=== PATIENT | male | born 1965 | race Caucasian/White ===

== ENCOUNTER 2024-04-27 00:23 | Day surgery (SDC) | payer OTHER, SELFPAY ==
[2024-04-17 11:17] VITALS: BMI 32.5
--- NOTE | 2024-04-17 11:27 | PC.NURSE ---
Report to the Outpatient Waiting Room, entrance under the green pavilion located off [facility], at time ___2:00PM____ on date ___04/27/24____. Planned Procedure Time: ___3:00PM .? Time changes happen often and if your time is changed the preop area will call you the afternoon before. - You and your visitor will be asked to self-screen and do not enter if you have any COVID symptoms. Please call surgeon if you need to reschedule. - A mask is optional within the hospital at this time. OKAY TO EAT LIGHT LUNCH. Take only the following medications with a SIP of water on the morning of surgery: MORNING MEDICATION DO NOT STOP ANY OF YOUR OTHER PRESCRIPTION MEDICATIONS PRIOR TO SURGERY EXCEPT THE FOLLOWING Hold all vitamins and supplements for 3 days per anesthesiologist. Medications to discontinue per physician NONE Date to take last dose Please no make-up, nail greenlandic, hairspray, perfume, deodorant, or body powder the day of surgery.? No jewelry (including any body piercings) or valuables the day of surgery, leave them at home.? Please take a shower or bath the night before, or the morning of, surgery with an antibacterial soap.? Wear comfortable, loose fitting clothing.? - Jewelry must be removed prior to entering the operating room.? Rings and piercings that are not removed may be cut off. - The hospital will not accept responsibility for valuables.? - Please leave all valuables, including medications, at home the day of surgery. If you are going home after surgery, a licensed trash collector truck driver must drive you home.? - NO public transportation without another adult if you receive anesthesia. - We recommend that an adult stay with you for 24 hours following discharge. - We also recommend that you do not drive, make important decision, drink alcoholic beverages, or take any drugs that were not prescribed by your health care provider for at least 24 hours after your discharge time. Follow any additional instructions given to you from your surgeon. Telephone instructions given to PATIENT and asked if any additional questions and then verbalized understanding. Patient advised to call surgeon office or pre surgery nurse liaison [phone] if any additional questions.
--- OUTSIDE RECORDS SUMMARY | 2024-04-27 00:25 | XMS_ITS | Clinical Summary ---
Author Organization [facility] Address [address] [place] [phone] Phone Care Team Providers Care Hotel And Dining Room Cashier Name Role Phone Byron Calderon MD Primary Care Provider Allergies Active Allergy Reactions Criticality Noted Date Comments Aspirin Unknown 02/21/2017 Medications celecoxib (CeleBREX) 200 mg capsule Take 200 mg by mouth daily. Active amLODIPine (NORVASC) 2.5 mg tablet Take 5 mg by mouth daily. Active omeprazole (PriLOSEC) 20 mg Capsule, Delayed Release(E.C.) Take 20 mg by mouth daily. Active Active Problems No known active problems Family History Medical History Relation Name Comments Cancer Father Lymphoma Father Coronary Artery Disease Mother Heart Attack Mother Relation Name Status Comments Father Mother Social History Tobacco Use Types Packs/Day Years Used Date Smoking Tobacco: Never Tobacco Cessation:Counseling Given: Not Answered Alcohol Use Standard Drinks/Week Comments Not Currently 0 (1 standard drink = 0.6 oz pur e alcohol) Sex and Gender Information Value Date Recorded Sex Assigned at Not on file Legal Sex Male 10:33 AM CDT Gender Identity Not on file Sexual Orientation Not on file Last Filed Vital Signs Vital Sign Reading Time Taken Comments Blood Pressure 126/74 09/17/2022 3:03 PM CDT Pulse 56 09/17/2022 3:03 PM CDT Temperature 36.7 C (98.1 F) 04/07/2020 10:13 AM CLIENT REPORTING ASSOCIATE Respiratory Rate 18 04/07/2020 10:13 AM CLIENT REPORTING ASSOCIATE Oxygen Saturation 100% 04/07/2020 10:13 AM CLIENT REPORTING ASSOCIATE Inhaled Oxygen Concentration - - Weight 120.2 kg (265 lb) 09/17/2022 3:03 PM CDT Height 190.5 cm (6' 3 ) 09/17/2022 3:03 PM CDT Body Mass Index 33.12 09/17/2022 3:03 PM CDT Plan of Treatment Health Maintenance Due Date Last Done Comments HEPATITIS B VACCINES (1 of 3 - 19+ 3-dose series) 02/19/1984 COLORECTAL SCREENING 2010 Colorectal Cancer Screening 2010 FIT-DNA Q 3 years 2010 FIT/FOBT Q 1 year 2010 Flex Sig/CT Colonography Q 5 years 2010 ZOSTER VACCINE (1 of 2) 2015 INFLUENZA VACCINE (#1) 2023 8, 12/15/2015, 10/07/2014, Additional history exists DTAP/TDAP/TD VACCINES (2 - T d or Tdap) 08/10/2024 08/10/2014 [place] [address] Care Teams Hotel And Dining Room Cashier Relationship Specialty Start Date End Date Byron Calderon MD PCP - General 09/08/17
--- OUTSIDE RECORDS SUMMARY | 2024-04-27 00:25 | XMS_ITS | Clinical Summary ---
Author Organization [facility] [employer] Address [address] [place] [address] Care Team Providers Care Belt Polisher Name Role Phone Byron Calderon MD Primary Care Provider [phone] Source Comments [facility] [employer],non-owned Affiliates and Associated Physician Practices is amultiple site organization consisting of ambulatory clinics and hospital sitesin [place], [place], [place] and [place]. This disclosure is being madepursuant to the Care Everywhere program and may not contain all information available regarding this patient. Last updated 17.[facility] [employer] Allergies Active Allergy Reactions Criticality Noted Date Comments Aspirin Unknown 02/21/2017 Medications * Be aware that medications may not be up to date on this document. Alwaysverify current medications with the patient. Medication Sig Dispensed Refills Start Date End Date Status CELEBREX 200 MG capsule 09/16/2018 Active amLODIPine (NORVASC) 2.5 MG tablet 09/03/2018 Active omeprazole (PRILOSEC) 20 MG capsule 07/19/2018 Active meloxicam (Mobic) 15 MG tablet Take 1 (one) tablet by mouth once daily 30 tablet 03/09/2024 Active Hospital, Clinic, or Other Facility Administered Medication Ordered Dose Route Frequency Start Date End Date Status ROPivacaine (Naropin) 2 MG/ML (0.2%) injection 4 mLIndications:Left shoulder pain, unspecified chronicity 4 mL INFILTRATION ONCE 04/20/2024 04/20/2024 Ended triamcinolone acetonide (Kenalog-40) injection 80 mgIndications:Left shoulder pain, unspecified chronicity 80 mg IX ONCE 04/20/2024 04/20/2024 Ended ROPivacaine (Naropin) 2 MG/ML (0.2%) injection 4 mLIndications:Chroni c right shoulder pain 4 mL INFILTRATION ONCE 04/20/2024 04/20/2024 Ended triamcinolone acetonide (Kenalog-40) injection 80 mgIndications:Chroni c right shoulder pain 80 mg IX ONCE 04/20/2024 04/20/2024 Ended Active Problems Problem Noted Date Diagnosed Date 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 Encounters Date Type Department Care Team Description 04/20/2024 8:13 AM CDT - 04/20/2024 11:59 PM CDT Hospital Encounter [facility] - [facility]iology [address] [id number] Edin Cho MD Discharge Disposition: Home or Self Care 04/20/2024 8:10 AM CDT Office Visit [facility] - Orthopedic Surgery [address] [place] [phone] Edin Cho MD Left shoulder pain, unspecified chronicity (Primary Dx); Chronic right shoulder pain 04/20/2024 Travel 04/15/2024 Travel 03/09/2024 8:10 AM SHIP CLEANER Office Visit [facility] - Orthopedic Surgery [address] [place] [phone] Edin Cho MD Right shoulder pain, unspecified chronicity (Primary Dx) 03/09/2024 7:47 AM SHIP CLEANER - 03/09/2024 11:59 PM SHIP CLEANER Hospital Encounter [facility] [address] [id number] Edin Cho MD Discharge Disposition: Home or Self Care 03/09/2024 Travel 03/05/2024 Orders Only [facility] - Orthopedic Surgery [address] [place] [phone] Edin Cho MD Right shoulder pain, unspecified chronicity 03/05/2024 Travel from Last 3 Months Family History Medical History Relation Name Comments Lymphoma Father CAD (Coronary Artery Disease) Mother Relation Name Status Comments Father Mother Social History Tobacco Use Types Packs/Day Years Used Date Smoking Tobacco: Never Smokeless Tobacco: Never Tobacco Cessation:Counseling Given: Not Answered Alcohol Use Standard Drinks/Week Comments Yes 0 (1 standard drink = 0.6 oz pur e alcohol) PHQ-2 Answer Date Recorded Patient Health Questionnaire-2 Score 0 03/09/2024 Sex and Gender Information Value Date Recorded Sex Assigned at Not on file Gender Identity Not on file Sexual Orientation Not on file Last Filed Vital Signs Vital Sign Reading Time Taken Comments Blood Pressure 140/98 10/31/2018 9:50 AM CDT Pulse 60 10/31/2018 9:50 AM CDT Temperature - - Respiratory Rate 16 10/31/2018 9:50 AM CDT Oxygen Saturation - - Inhaled Oxygen Concentration - - Weight 117 kg (258 lb) 04/20/2024 8:09 AM CDT Height 190.5 cm (6' 3 ) 04/20/2024 8:09 AM CDT Body Mass Index 32.25 04/20/2024 8:09 AM CDT Plan of Treatment Health Maintenance Due Date Last Done Comments COLOGUARD (AGES 45-75) - COL ON CA SCREENING 1965 COLON MONITORING 1965 COLONOSCOPY - COLON CA SCREENING 1965 CT COLONOGRAPHY - COLON CA SCREENING 1965 Colorectal Cancer Screening 1965 FIT - COLON CA SCREENING 1965 FLEX SIG - COLON CA SCREENING 1965 LIPID TESTING 1965 HIV SCREENING 02/19/1980 HEPATITIS C SCREENING 02/14/1983 DTAP/TDAP/TD VACCINES (1 - Tdap) 02/19/1984 HEPATITIS B VACCINE (1 of 3 - 19+ 3-dose series) 02/19/1984 PNEUMOCOCCAL VACCINE 50+ (1 of 1 - PCV) 2015 ZOSTER VACCINE (1 of 2) 2015 COVID-19 VACCINE ( - 2023-2 5 season) 2023 INFLUENZA VACCINE (#1) 2023 SCREENING FOR DIABETES 03/09/2024 DEPRESSION SCREENING Completed 03/09/2024 HIB VACCINE Aged Out No longer eligi ble based on patient's age to complete this topic HPV VACCINE Aged Out No longer eligi ble based on patient's age to complete this topic MENINGOCOCCAL (Group B) VACC INE SHARED DECISION-MAKING Aged Out No longer eligibl e based on patient's age to complete this topic MENINGOCOCCAL GROUPS A/C/Y/W VACCINE Aged Out No longer eligible b ased on patient's age to complete this topic Procedures Procedure Name Priority Date/Time Associated Diagnosis Comments PA DRAIN/INJECT LARGE JOINT/BURSA Routine 04/20/2024 8:42 AM CDT Left shoulder pain, unspecified chronicity PA DRAIN/INJECT LARGE JOINT/BURSA Routine 04/20/2024 8:41 AM CDT Chronic right shoulder pain XR SHOULDER LEFT 2VW OR MORE Routine 04/20/2024 8:16 AM CDT Left shoulder pain, unspecified chronicity XR SHOULDER RIGHT 2VW OR MORE Routine 03/09/2024 7:51 AM SHIP CLEANER Right shoulder pain, unspecified chronicity from Last 3 Months Results * PA DRAIN/INJECT LARGE JOINT/BURSA (04/20/2024 8:42 AM CDT) Edin Drummond MD - 04/20/2024 8:42 AM CDT Edin Cho MD 04/20/2024 8:56 AM INJECTION PROCEDURE NOTE: The details of the procedure were discussed with the patient including risks and benefits. The patient had a chance to ask questions and gave consent to proceeding. The injection site was marked. A timeout was performed. Under sterile conditions, without complications, tolerated well by the patient, 5 cc ropivacaine and 80 mg (2 cc) triamcinolone were injected into the right subacromial space posteriorly. There was no blood loss. Edin Cho MD Edin Cho MD PROCEDURE/MINOR SURG ICAL ORDERABLES * PA DRAIN/INJECT LARGE JOINT/BURSA (04/20/2024 8:41 AM CDT) Edin Drummond MD - 04/20/2024 8:41 AM CDT Edin Cho MD 04/20/2024 8:56 AM INJECTION PROCEDURE NOTE: The details of the procedure were discussed with the patient including risks and benefits. The patient had a chance to ask questions and gave consent to proceeding. The injection site was marked. A timeout was performed. Under sterile conditions, without complications, tolerated well by the patient, 5 cc ropivacaine and 80 mg (2 cc) triamcinolone were injected into the left subacromial space posteriorly. There was no blood loss. Edin Cho MD Edin Cho MD PROCEDURE/MINOR SURG ICAL ORDERABLES * XR Shoulder Left 2Vw or More (04/20/2024 8:16 AM CDT) Anatomical Region Laterality Modality Upper Extremity Computed Radiogr aphy 04/20/2024 10:5 8 AM CDT Narrative 04/20/2024 10:58 AM CDT 3 views left shoulder Indication: Left shoulder pain Findings: There is no displaced fracture or dislocation osseous destruction. Significant hypertrophic or erosive changes are not identified. > Interpreting Provider: Cheng Mac JR, MD on 04/20/2024 10:58 AM Procedure Note Cheng Mac MD - 04/20/2024 3 views left shoulder Indication: Left shoulder pain Findings: There is no displaced fracture or dislocation osseous destruction. Significant hypertrophic or erosive changes are not identified. > Interpreting Provider: Cheng Mac JR, MD on 04/20/2024 10:58 AM Edin Cho MD DIAGNOSTIC IMAGING O RDERABLES * XR Shoulder Right 2Vw or More (03/09/2024 7:51 AM SHIP CLEANER) Anatomical Region Laterality Modality Upper Extremity Computed Radiogr aphy 03/09/2024 10:3 2 AM SHIP CLEANER Impressions 03/09/2024 11:04 AM SHIP CLEANER IMPRESSION: No acute osseous abnormality. Edited by Maddison Manriquez on 03/09/2024 10:50 AM > Interpreting Provider: Bautista Machado MD on 03/09/2024 11:04 AM Narrative 03/09/2024 11:04 AM SHIP CLEANER PROCEDURE: XR SHOULDER RIGHT 2VW OR MORE DATE/TIME OF EXAM: 03/09/2024 7:51 AM CLINICAL INFORMATION: None relevant/not provided if blank. Indication: M25.511: Pain in right shoulder Additional History: COMPARISON: None. FINDINGS: Three views of the right shoulder show no acute fracture, subluxation or dislocation. Procedure Note Bautista Machado MD - 03/09/2024 PROCEDURE: XR SHOULDER RIGHT 2VW OR MORE DATE/TIME OF EXAM: 03/09/2024 7:51 AM CLINICAL INFORMATION: None relevant/not provided if blank. Indication: M25.511: Pain in right shoulder Additional History: COMPARISON: None. FINDINGS: Three views of the right shoulder show no acute fracture, subluxation or dislocation. IMPRESSION: No acute osseous abnormality. Edited by Maddison Manriquez on 03/09/2024 10:50 AM > Interpreting Provider: Bautista Machado MD on 03/09/2024 11:04 AM Edin Cho MD DIAGNOSTIC IMAGING O RDERABLES from Last 3 Months Care Teams Belt Polisher Relationship Specialty Start Date End Date Byron Calderon MD PCP - General 10/01/18
--- OUTSIDE RECORDS SUMMARY | 2024-04-27 00:25 | XMS_ITS | Referral Summary ---
Author Organization [facility] [employer] Address [address] [place] [address] Care Team Providers Care Elementary Spanish Teacher Name Role Phone Byron Calderon MD Primary Care Provider [phone] Source Comments [facility],non-owned Affiliates and Associated Physician Practices is amultiple site organization consisting of ambulatory clinics and hospital sitesin [place], [place], [place] and [place]. This disclosure is being madepursuant to the Care Everywhere program and may not contain all information available regarding this patient. Last updated 17.[facility] Encounters Date Type Department Care Team Description 04/20/2024 8:13 AM CDT - 04/20/2024 11:59 PM CDT Hospital Encounter [facility] - Radiology [address] [id number] Edin Cho MD Discharge Disposition: Home or Self Care 04/20/2024 Travel 04/20/2024 8:10 AM CDT Office Visit [facility] - Orthopedic Surgery [address] [place] [address] [place] [id number] Edin Cho MD Left shoulder pain, unspecified chronicity (Primary Dx); Chronic right shoulder pain 04/15/2024 Travel 03/09/2024 7:47 AM HOUSE FURNISHINGS SUPERVISOR - 03/09/2024 11:59 PM HOUSE FURNISHINGS SUPERVISOR Hospital Encounter [facility] - Radiology [address] [id number] Edin Cho MD Discharge Disposition: Home or Self Care 03/09/2024 Travel 03/09/2024 8:10 AM HOUSE FURNISHINGS SUPERVISOR Office Visit [facility] - Orthopedic Surgery [address] [place] [phone] Edin Cho MD Right shoulder pain, unspecified chronicity (Primary Dx) 03/05/2024 Orders Only [facility] - Orthopedic Surgery [address] [place] [id number] Edin Cho MD Right shoulder pain, unspecified chronicity 03/05/2024 Travel from Last 3 Months Allergies Active Allergy Reactions Criticality Noted Date [...] Date 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 Social History Tobacco Use Types Packs/Day Years [...] 04/20/2024 8:09 AM CDT Plan of Treatment Not on file Procedures Procedure Name Priority Date/Time Associated Diagnosis Comments NE DRAIN/INJECT LARGE JOINT/BURSA Routine 04/20/2024 8:42 AM CDT Left shoulder pain, unspecified chronicity NE DRAIN/INJECT LARGE JOINT/BURSA Routine 04/20/2024 8:41 AM CDT Chronic right shoulder pain XR SHOULDER LEFT 2VW OR MORE Routine 04/20/2024 8:16 AM CDT Left shoulder pain, unspecified chronicity XR SHOULDER RIGHT 2VW OR MORE Routine 03/09/2024 7:51 AM HOUSE FURNISHINGS SUPERVISOR Right shoulder pain, unspecified chronicity from Last 3 Months Results * NE DRAIN/INJECT LARGE JOINT/BURSA (04/20/2024 8:42 AM CDT) Narrative Edin Cho MD - 04/20/2024 8:42 AM CDT Edin [...] Cho MD PROCEDURE/MINOR SURG ICAL ORDERABLES * NE DRAIN/INJECT LARGE JOINT/BURSA (04/20/2024 8:41 AM CDT) Narrative Edin Cho MD - 04/20/2024 8:41 AM CDT Edin [...] Right 2Vw or More (03/09/2024 7:51 AM HOUSE FURNISHINGS SUPERVISOR) Anatomical Region Laterality Modality Upper Extremity Computed Radiogr aphy 03/09/2024 10:3 2 AM HOUSE FURNISHINGS SUPERVISOR Impressions 03/09/2024 11:04 AM HOUSE FURNISHINGS SUPERVISOR IMPRESSION: No acute osseous abnormality. Edited by Maddison Manriquez on 03/09/2024 10:50 AM > Interpreting Provider: Bautista Machado MD on 03/09/2024 11:04 AM Narrative 03/09/2024 11:04 AM HOUSE FURNISHINGS SUPERVISOR PROCEDURE: XR SHOULDER RIGHT 2VW OR MORE [...] RDERABLES from Last 3 Months Care Teams Elementary Spanish Teacher Relationship Specialty Start Date End Date Byron Calderon MD PCP - General 10/01/18
--- OUTSIDE RECORDS SUMMARY | 2024-04-27 00:25 | XMS_ITS | Patient Health Summary ---
Author Organization [facility] Address [address] [place] [address] Care Team Providers Care Sales Enablement Lead Name Role Phone Byron Calderon MD Primary Care Provider [phone] [facility],non-owned Affiliates and Associated Physician Practices is amultiple site organization consisting of ambulatory clinics and hospital sitesin [place], [place] and [place]. This disclosure is being madepursuant to the Care Everywhere program and may not contain all information available regarding this patient. Last updated 17.[facility] Allergies * Aspirin(Unknown) Medications * Be aware that medications may not be up to date on this document. Alwaysverify current medications with the patient. * CELEBREX 200 MG capsule(Started 09/16/2018) * amLODIPine (NORVASC) 2.5 MG tablet(Started 09/03/2018) * omeprazole (PRILOSEC) 20 MG capsule(Started 07/19/2018) * meloxicam (Mobic) 15 MG tablet(Started 03/09/2024) Take 1 (one) tablet by mouth once daily Active Problems Problem Noted Date Diagnosed Date [...] Mass Index 32.25 04/20/2024 8:09 AM CDT Procedures * AL DRAIN/INJECT LARGE JOINT/BURSA(Performed 04/20/2024) Performed for Left shoulder pain, unspecified chronicity * AL DRAIN/INJECT LARGE JOINT/BURSA(Performed 04/20/2024) Performed for Chronic right shoulder pain * XR SHOULDER LEFT 2VW OR MORE(Performed 04/20/2024) Performed for Left shoulder pain, unspecified chronicity * XR SHOULDER RIGHT 2VW OR MORE(Performed 03/09/2024) Performed for Right shoulder pain, unspecified chronicity * CT ANKLE LEFT WO CONTRAST(Performed 10/08/2018) Performed for Arthritis of left subtalar joint * XR ANKLE LEFT 3VW OR MORE(Performed 10/01/2018) Performed for Pain Results * AL DRAIN/INJECT LARGE JOINT/BURSA (04/20/2024 8:42 AM CDT) [...] Cho MD PROCEDURE/MINOR SURG ICAL ORDERABLES * AL DRAIN/INJECT LARGE JOINT/BURSA (04/20/2024 8:41 AM CDT) [...] Right 2Vw or More (03/09/2024 7:51 AM IRISH MOSS OPERATOR) Anatomical Region Laterality Modality Upper Extremity Computed Radiogr aphy 03/09/2024 10:3 2 AM IRISH MOSS OPERATOR Impressions 03/09/2024 11:04 AM IRISH MOSS OPERATOR IMPRESSION: No acute osseous abnormality. Edited by Maddison Manriquez on 03/09/2024 10:50 AM > Interpreting Provider: Bautista Machado MD on 03/09/2024 11:04 AM Narrative 03/09/2024 11:04 AM IRISH MOSS OPERATOR PROCEDURE: XR SHOULDER RIGHT 2VW OR MORE [...] Cho MD DIAGNOSTIC IMAGING O RDERABLES * CT ANKLE LEFT WO CONTRAST (10/08/2018 7:48 AM CDT) Anatomical Region Laterality Modality Lower Extremity Computed Tomogra phy 10/08/2018 8:15 AM CDT Narrative 10/08/2018 8:[address] HISTORY: Degenerative changes and ankle pain. TECHNIQUE: Axial images of the ankle, midfoot and hindfoot were obtained without contrast. There are degenerative changes of the distal tibiofibular articulation and tibiotalar articulation. Visualized talar dome is normal without evidence of talar dome defects. There is marked degenerative change in the posterior subtalar joint with significant joint space narrowing and subchondral cyst formation. Associated hypertrophic bone formation is seen. More mild to moderate degenerative change of the sustentaculum talus, talonavicular articulation, mid foot joint spaces and tarsometatarsal articulations. Small anterior inferior calcaneal spur and enthesophyte at the insertion of the Achilles tendon. Ankle joint effusion is present. DIAGNOSIS: Diffuse degenerative changes. Findings are most notable in the posterior subtalar joint. Edited by Cyndy Vidales on 10/08/2018 8:54 AM Reading Radiologist: Sanford Hammond MD on 10/08/2018 at 8:57 AM Procedure Note Sanford Hammond MD - 10/08/[address] HISTORY: Degenerative changes and ankle pain. TECHNIQUE: Axial images of the ankle, midfoot and hindfoot were obtained without contrast. There are degenerative changes of the distal tibiofibular articulation and tibiotalar articulation. Visualized talar dome is normal without evidence of talar dome defects. There is marked degenerative change in the posterior subtalar joint with significant joint space narrowing and subchondral cyst formation. Associated hypertrophic bone formation is seen. More mild to moderate degenerative change of the sustentaculum talus, talonavicular articulation, mid foot joint spaces and tarsometatarsal articulations. Small anterior inferior calcaneal spur and enthesophyte at the insertion of the Achilles tendon. Ankle joint effusion is present. DIAGNOSIS: Diffuse degenerative changes. Findings are most notable in the posterior subtalar joint. Edited by Cyndy Vidales on 10/08/2018 8:54 AM Reading Radiologist: Sanford Hammond MD on 10/08/2018 at 8:[address] ORDERABLES * XR ANKLE LEFT 3VW OR MORE (10/01/2018 3:07 PM CDT) Anatomical Region Laterality Modality Lower Extremity Radiographic Lakisha ging 10/01/2018 3:08 PM CDT Narrative 10/01/2018 3:09 PM CDT Left ankle HISTORY: Pain. PROCEDURE: AP, lateral and oblique views left ankle are admitted without prior for comparison. Findings/impression: Mild degenerative changes are noted at the tibiotalar joint. Degenerative changes are seen at the talonavicular and tarsal joints. There appears to be mild pes planus. A small calcaneal spur and Achilles enthesophyte are noted. Ankle mortise is grossly intact. Reading Radiologist: Bautista Piña MD on 10/01/2018 at 3:09 PM Procedure Note Bautista Piña DO - 10/01/2018 Left ankle HISTORY: Pain. PROCEDURE: AP, lateral and oblique views left ankle are admitted without prior for comparison. Findings/impression: Mild degenerative changes are noted at the tibiotalar joint. Degenerative changes are seen at the talonavicular and tarsal joints. There appears to be mild pes planus. A small calcaneal spur and Achilles enthesophyte are noted. Ankle mortise is grossly intact. Reading Radiologist: Bautista Piña MD on 10/01/2018 at 3:09 PM Felix Lopez DO DIAGNOSTIC IMAGING O [facility] Care Teams Sales Enablement Lead Relationship Specialty Start Date End Date Byron Calderon MD PCP - General 10/01/18
[2024-04-27 13:55] VITALS: BP 148/85; PULSE 79; RESP 14; TEMP 36.8; O2SAT 96
--- NOTE | 2024-04-27 14:24 | WPDHPUPDATE1 ---
History and Physical Update Update Date/Time: 04/27/24 14:24 History and Physical has been reviewed, including an updated exam of the patient. There are NO changes in the patient's condition. Risks, benefits, and alternatives have been discussed and questions answered. Patient agrees to proceed with procedure.
[2024-04-27 14:40] VITALS: BP 158/86; PULSE 67; RESP 16; O2SAT 96
[2024-04-27 14:50] VITALS: BP 151/81; PULSE 64; RESP 16; O2SAT 94
[2024-04-27] MEDS: BUPivacaine HCL 0.5% 10 ML AMP 20 ML INFILTRATE (14:51)
[2024-04-27] MEDS: LIDO 1%/EPINEPHRINE 1:100,000 20 ML VIAL INFILTRATE (14:51)
[2024-04-27 15:00] VITALS: BP 144/70; PULSE 72; RESP 16; O2SAT 94
[2024-04-27 15:10] VITALS: BP 136/58; PULSE 77; RESP 16; O2SAT 93
[2024-04-27 15:20] VITALS: BP 142/80; PULSE 70; RESP 18; O2SAT 100
--- NOTE | 2024-04-27 15:29 | W.PM.PROC2 ---
Procedure Note - Detailed Date of Procedure 04/27/24 Pre-op Diagnosis Left upper back sebaceous cyst Post-op Diagnosis Same Procedure Performed Excision left upper back sebaceous cyst with 5cm intermediate layered wound closure Surgeon Edin Ott MD Anesthesia Local Indications Patient is a 59-year-old gentleman who presented with a small slowly enlarging cyst in left upper back region. On examination appeared to be a sebaceous cyst. There has been no history of infection of the cyst but is enlarging. He would like to go ahead and have it excised today. Findings The patient is a 3x2x1.5cm sebaceous cyst which was nonruptured in the left upper back region. Required a 5cm intermediate layered wound closure after excision. Description of Procedure After informed consent was obtained patient brought to the operating was placed on the prone position on the operating table. The area the upper back region on the left side was then prepped and draped in usual sterile fashion. A time-out was then performed correctly identifying the patient as well as procedure to be performed. Site marking was verified. No antibiotics were given perioperatively. 1% lidocaine mixed with 0.5% Marcaine was then injected around the cyst for local anesthetic effect. A transverse incision was made full thickness down through the dermis the skin in elliptical fashion. Dissection was then carried further down to the subcutaneous tissues with a combination sharp scalpel electrocautery dissection. The whole wall the cyst was excised out with this incision with the attached ellipse of skin without violating the wall of the cyst. The cyst measured 3x2x1.5cm. It was sent to pathology for examination. Hemostasis and the incision was then achieved electrocautery. The wound was then irrigated sterile saline solution hemostasis was good. A 5cm intermediate layered wound closure was then performed. Interrupted 2-0 Vicryl sutures were placed in the deeper portions of the subcutaneous tissues. This is then followed by more superficial layer of interrupted 3-0 Vicryl sutures. The skin edges were then approximated lies in a running subcuticular 4-0 Monocryl suture. The incision was then cleaned the skin glue was applied. The patient tolerated the procedure well no complications. All sponges, needles, and instrument counts were correct at the end procedure. EBL was _10__cc. The patient was awakened and taken to recovery in stable and satisfactory condition. Implants None Estimated Blood Loss 10 Drains No Packing No Pathology Yes (Left upper back sebaceous cyst sent to pathology) Complications No immediate complications Condition Stable Disposition Same day [facility] Billing Surgery - Charge Forward: Surgery Billing
== END 2024-04-27 15:38 | disposition home or self-care (01) ==
PROVIDERS: Visit Provider Surgery
PROC: (CPT 11406; principal; 2024-04-27 13:30)
DX: L72.0 Epidermal cyst (principal); I10 Essential (primary) hypertension; M19.90 Unspecified osteoarthritis, unspecified site; Z79.1 Long term (current) use of non-steroidal anti-inflammatories (NSAID); Z98.890 Other specified postprocedural states; Z80.7 Family history of other malignant neoplasms of lymphoid, hematopoietic and related tissues
CPT/HCPCS: 11406; 12032; 88305; J2004

== ENCOUNTER 2025-01-07 11:29 | Inpatient (IN) | payer OTHER, SELFPAY ==
[2025-01-07] VITALS (28 sets, daily range): BP systolic 146–185; BP diastolic 85–104; PULSE 63–89; RESP 12–23; TEMP 36.6; O2SAT 98–100; BMI 31.1
--- NOTE | ~2025-01-07 | CT_ITS ---
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 TECHNIQUE: CTA scan with 3D Reconstructions of the chest, abdomen and pelvis was performed with contrast Isovue 300, 92cc injected IV. One or more of the following dose reduction techniques were used: automated exposure control, adjustment of the mA and/or kV according to patient size, use of iterative reconstruction technique. Unless otherwise stated, incidental findings do not require dedicated follow up imaging FINDINGS: CT chest: No significant coronary calcification is present ([id number]) LUNGS: Clear without consolidation, effusion, or pneumothorax. HEART AND PERICARDIUM: Within normal limits. AORTA: Normal caliber aorta. No aneurysm or dissection identified MEDIASTINUM: Unremarkable. THYROID: The thyroid is unremarkable. CT abdomen: LIVER: Unremarkable, liver contours intact, no lesions. SPLEEN: Unremarkable, no splenomegaly. KIDNEYS: Right Kidney: Right kidney subcentimeter probable renal cysts but too small to characterize. Left Kidney: Unremarkable. No calculi. No hydronephrosis ADRENAL GLANDS: Unremarkable. PANCREAS: GALLBLADDER/BILIARY: Unremarkable. No biliary dilatation. STOMACH AND ESOPHAGUS: Visualized stomach and esophagus within normal limits. BOWEL/MESENTERY: Moderate fecal content. No colitis or diverticulitis. Appendix normal. Mesentery normal. No thickened or dilated loops of small bowel. RETROPERITONEUM: Unremarkable AORTA/VASCULATURE: . No aneurysm or dissection identified. The visualized aortic tributaries appear unremarkable FREE FLUID OR FREE AIR: Free fluid.. CT pelvis: SOLID ORGANS/REPRODUCTIVE: Unremarkable. BLADDER: Within normal limits. LYMPHADENOPATHY: No lymphadenopathy. OSSEOUS STRUCTURES: No sclerotic or lytic lesions. No fractures identified in the pelvis. Moderate degenerative changes of the lumbar spine. OVERLYING SOFT TISSUES: Small bilateral fat-containing inguinal hernia.Small bilateral partially imaged hydroceles, scrotal ultrasound suggested IMPRESSION: 1. No acute process is identified. No dissection or aneurysm Reviewed, dictated and finalized at location P. DENTIAL GREEN BUILDING DESIGNER
--- NOTE | ~2025-01-07 | XR_ITS ---
EXAM/PROCEDURE: XR chest 2V HISTORY: Chest pain COMPARISON: None available. TECHNIQUE: Two view(s) of the chest. FINDINGS: LUNGS: The frontal view is obtained in expiration, causing crowding of the lung markings. Strandy densities are seen at both lung bases. This is probably secondary to the expiratory status, as there is no airspace disease seen on the lateral. PLEURAL SPACES: Clear. No evidence of fluid or pneumothorax. HEART/ MEDIASTINUM: The heart size appears to be enlarged, at least in part related to the AP technique on the frontal view SOFT TISSUES: No significant findings. BONES: No acute osseous abnormality. IMPRESSION: Probable strandy atelectasis on the frontal view. No definite infiltrate or air space disease seen on the lateral. Clinically correlate. Reviewed, dictated and finalized at location A. STERED PHARMACIST
--- NOTE | 2025-01-07 11:30 | ECG_ITS ---
Test Date: 2025-01-07 11:37:47 Measurements Intervals [place] Rate: 81 P: 23 AR: 184 QRS: -15 QRSD: 129 T: 24 QT: 386 QTc: 450 Interpretive Statements SINUS RHYTHM POSSIBLE RIGHT VENTRICULAR CONDUCTION DELAY [RSR (QR) IN V1/V2] ABNORMAL ECG No previous ECG available for comparison Electronically Signed On 01-07-2025 12:31:19 EMPLOYMENT LAW SPECIALIST by Bautista Conley M.D.
--- OUTSIDE RECORDS SUMMARY | 2025-01-07 11:31 | XMS_ITS | Clinical Summary ---
Author Organization [facility] Address [address] [place] [phone] Phone Care Team Providers Care Informatica Name Role Phone Byron Calderon MD Primary [...] 36.7 C (98.1 F) 04/07/2020 10:13 AM CHIEF ENGINEER RESEARCH Respiratory Rate 18 04/07/2020 10:13 AM CHIEF ENGINEER RESEARCH Oxygen Saturation 100% 04/07/2020 10:13 AM CHIEF ENGINEER RESEARCH Inhaled Oxygen Concentration - - Weight 120.2 kg (265 lb) 09/17/2022 3:03 PM CDT Height 190.5 cm (6' 3) 09/17/2022 3:03 PM CDT Body Mass Index 33.12 09/17/2022 3:03 PM CDT Plan of Treatment Health Maintenance Due Date Last Done Comments HEPATITIS B VACCINES (1 of 3 - 19+ 3-dose series) 02/19/1984 COLORECTAL SCREENING 2010 Colorectal Cancer Screening 2010 FIT-DNA Q 3 years 2010 FIT/FOBT Q 1 year 2010 Flex Sig/CT Colonography Q 5 years 2010 ZOSTER VACCINE (1 of 2) 2015 DTAP/TDAP/TD VACCINES (2 - T d or Tdap) 08/10/2024 08/10/2014 INFLUENZA VACCINE (#1) 2024 8, 12/15/2015, 10/07/2014, Additional history exists Insurance [facility] [employer] PPO [id number] Care Teams Informatica Relationship Specialty Start Date End Date Byron Calderon MD PCP - General 09/08/17
--- OUTSIDE RECORDS SUMMARY | 2025-01-07 11:31 | XMS_ITS | Clinical Summary ---
Author Organization [facility] Address [address] [place] [address] Care Team Providers Care Senior Research Consultant Name Role Phone Byron Calderon MD Primary Care Provider [phone] Source Comments [facility],non-owned Affiliates and Associated Physician Practices is amultiple site organization consisting of ambulatory clinics and hospital sitesin [place], [place], [place] and [place]. This disclosure is being madepursuant to the Care Everywhere program and may not contain all information available regarding this patient. Last updated 17.[facility] Allergies Active Allergy Reactions Criticality Noted Date Comments Aspirin Unknown 02/21/2017 Medications * Be aware that medications may not be up to date on this document. Alwaysverify current medications with the patient. CELEBREX 200 MG capsule 9 Active omeprazole (PRILOSEC) 20 MG capsule 9 Active meloxicam (Mobic) 15 MG tablet Take 1 (one) tablet by mouth once daily 30 tablet 5 Active Additional Information Patient not taking.Reported on 12/21/2024 ciclopirox (Loprox) 0.77 % suspension APPLY TOPICALLY TO THE AFFECTED AREA OF NAILS ONCE DAILY IN THE EVENING BEFORE BEDTIME Active amLODIPine (Norvasc) 5 MG tablet 5 Active amLODIPine (NORVASC) 2.5 MG tablet 9 12/22/19 25 Discontin ued(List Clean-Up) Hospital, Clinic, or Other Facility Administered Medication Ordered Dose Route Frequency Start Date End Date Status ROPivacaine (Naropin) 2 MG/ML (0.2%) injection 4 mLIndications:Right shoulder pain, unspecified chronicity 4 mL INFILTRATION ONCE 12/21/2024 12/21/2024 Ended triamcinolone acetonide (Kenalog-40) injection 80 mgIndications:Right shoulder pain, unspecified chronicity 80 mg IX ONCE 12/21/2024 12/21/2024 Ended triamcinolone acetonide (Kenalog-40) injection 80 mgIndications:Left shoulder pain, unspecified chronicity 80 mg IX ONCE 12/21/2024 12/21/2024 Ended ROPivacaine (Naropin) 2 MG/ML (0.2%) injection 4 mLIndications:Left shoulder pain, unspecified chronicity 4 mL INFILTRATION ONCE 12/21/2024 12/21/2024 Ended Active Problems Problem Noted Date Diagnosed Date 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 Encounters Date Type Department Care Team Description 12/21/2024 10:30 AM DRYING AND WINDING SUPERVISOR Office Visit [facility] - Orthopedic Surgery [address] [place] [address] Edin Cho MD Right shoulder pain, unspecified chronicity (Primary Dx); Left shoulder pain, unspecified chronicity 12/21/2024 Travel 12/15/2024 Travel from Last 3 Months Family History [...] Date Recorded Patient Health Questionnaire-2 Score 0 12/21/2024 Sex and Gender Information Value Date Recorded Sex Assigned at Not on file Legal Sex Male 5:25 AM DRYING AND WINDING SUPERVISOR Gender Identity Not on file Sexual Orientation Not on file Last Filed Vital Signs Vital Sign Reading Time Taken Comments Blood Pressure 140/98 10/31/2018 9:50 AM CDT Pulse 60 10/31/2018 9:50 AM CDT Temperature - - Respiratory Rate 16 10/31/2018 9:50 AM CDT Oxygen Saturation - - Inhaled Oxygen Concentration - - Weight 120.2 kg (265 lb) 12/21/2024 10:37 AM DRYING AND WINDING SUPERVISOR Height 190.5 cm (6' 3) 12/21/2024 10:37 AM DRYING AND WINDING SUPERVISOR Body Mass Index 33.12 12/21/2024 10:37 AM DRYING AND WINDING SUPERVISOR Plan of Treatment Health Maintenance Due Date Last Done Comments COLOGUARD (AGES 45-75) - COLON CA SCREENING 1965 COLON MONITORING 1965 COLONOSCOPY [...] 2015 ZOSTER VACCINE (1 of 2) 2015 SCREENING FOR DIABETES 03/09/2024 COVID-19 VACCINE (1 - season) 2024 INFLUENZA VACCINE (#1) 2024 , 01/13/2022, 01/11/2022, Additional history exists DEPRESSION SCREENING Completed 03/09/2024 HIB VACCINE Aged Out No longer eligi ble based on patient's age to complete this topic HPV VACCINE Aged Out No longer eligi ble based on patient's age to complete this topic MENINGOCOCCAL (Group B) VACCINE SHARED DECISION-MAKING Aged Out No longer eligible based on patient's age to complete this topic MENINGOCOCCAL GROUPS A/C/Y/W VACCINE Aged Out No longer eligible based on patient's age to complete this topic Procedures Procedure Name Priority Date/Time Associated Diagnosis Comments VA DRAIN/INJECT LARGE JOINT/BURSA Routine 12/21/2024 10:56 AM DRYING AND WINDING SUPERVISOR Left shoulder pain, unspecified chronicity VA DRAIN/INJECT LARGE JOINT/BURSA Routine 12/21/2024 10:55 AM DRYING AND WINDING SUPERVISOR Right shoulder pain, unspecified chronicity from Last 3 Months Results * VA DRAIN/INJECT LARGE JOINT/BURSA (12/21/2024 10:56 AM DRYING AND WINDING SUPERVISOR) Edin Drummond MD - 12/21/2024 10:56 AM DRYING AND WINDING SUPERVISOR Edin Cho MD 12/21/2024 10:56 AM INJECTION PROCEDURE NOTE: The details of [...] space posteriorly. There was no blood loss. Result [facility] Edin Cho MD PROCEDURE/MINOR SURGICAL ORDERAB LES Final Result * VA DRAIN/INJECT LARGE JOINT/BURSA (12/21/2024 10:55 AM DRYING AND WINDING SUPERVISOR) Edin Drummond MD - 12/21/2024 10:55 AM DRYING AND WINDING SUPERVISOR Edin Cho MD 12/21/2024 10:56 AM INJECTION PROCEDURE NOTE: The details of [...] space posteriorly. There was no blood loss. Result [facility] Edin Cho MD PROCEDURE/MINOR SURGICAL ORDERAB LES Final Result from Last 3 Months Insurance [facility] [id number] Care Teams Senior Research Consultant Relationship Specialty Start Date End Date Byron Calderon MD [address] [facility] [address] [place] [address] PCP - General Family Medicine 08/24/24
[2025-01-07] MEDS: ASPIRIN 81 MG CHEWABLE TABLET 324 MG PO (11:35)
[2025-01-07 11:45] LABS: Hematocrit 47.0 % (42.0-52.0); Hemoglobin 16.1 g/dL (14.0-18.0); Immature Granulocyte Percent A 0.4 % (0-0.5); Lymphocytes Absolute Auto 2.29 K/mm3 (0.9-3.2); Mean Corpuscular HGB Conc 34.3 g/dl (32-36); Mean Corpuscular Hemoglobin 31.7 pg (26-34); Mean Corpuscular Volume 92.5 fl (80-100); Nucleated Red Blood Cells Absolute Auto 0.000 K/mm3 (0.0-0.012); Nucleated Red Blood Cells Perc 0.0 % (0.0-0.2); Platelet Count Result 247 k/mm3 (150-375); Red Blood Count 5.08 M/mm3 (4.6-6.20); White Blood Count 10.0 K/mm3 (4.5-10.0)
[2025-01-07 11:57] LABS: INR 1.1; Prothrombin Time 13.7 Seconds (11.1-14.7)
[2025-01-07 11:58] LABS: Partial Thromboplastin Time 24.5 Seconds (22.3-36.8)
--- NOTE | 2025-01-07 12:02 | PC.NURSE ---
pt back from ct with complaints of feeling like he's going to pass out, patient very diaphoretic, stating that it's difficult to breath. edp at bedside
[2025-01-07] MEDS: fentaNYL CITRATE INJ (*CRX) 100 MCG/2 ML VIAL IV PUSH (12:04)
--- NOTE | 2025-01-07 12:07 | ECG_ITS ---
Test Date: 2025-01-07 12:10:11 Measurements Intervals [place] Rate: 76 P: 41 ID: [id number] QRS: -16 QRSD: 129 T: 17 QT: 408 QTc: 461 Interpretive Statements SINUS RHYTHM WITH FIRST DEGREE AV BLOCK POSSIBLE RIGHT VENTRICULAR CONDUCTION DELAY [RSR (QR) IN V1/V2] POSSIBLE LATERAL MYOCARDIAL INFARCTION , OF INDETERMINATE AGE [30 ms Q WAVE IN I/aVL/V5/V6] ABNORMAL ECG Compared to ECG 01/07/2025 11:37:47 First degree AV block now present Myocardial infarct finding now present Electronically Signed On 01-07-2025 12:32:04 CUSTOMER SALES CONSULTANT by Bautista Conley M.D.
[2025-01-07 12:18] LABS: Alanine Aminotransferase 34 U/L (6-50); Albumin Level 4.7 g/dL (3.5-5.1); Alkaline Phosphatase 68 U/L (38-126); Anion Gap 10 mmol/L (4-12); Aspartate Amino Transferase 38 U/L (17-59); Bilirubin,Total 0.9 mg/dL (0.2-1.3); Blood Urea Nitrogen 21 mg/dL (9-20); Calcium 9.8 mg/dL (8.4-10.2); Carbon Dioxide 24 mmol/L (22-30); Chloride 103 mmol/L (98-107); Estimated CRCL calculation 92 ml/min; Estimated Glomerular Filt Rate > 60; Glucose 113 mg/dL (65-110); Lipase 86 U/L (23-300); Potassium 3.7 mmol/L (3.4-5.0); Sodium 137 mmol/L (137-145); Total Protein 8.2 g/dL (6.3-8.2)
[2025-01-07 12:29] LABS: Troponin I < 0.012 ng/mL (0.000-0.034)
[2025-01-07] MEDS: HYDROmorphone HCL INJ (*CRX) 1 MG/ML SYR IV PUSH (13:00)
[2025-01-07] MEDS: FAMOTIDINE 20 MG/2 ML VIAL IV PUSH (13:03)
[2025-01-07] MEDS: PANTOPRAZOLE SODIUM IV 40 MG VIAL IV PUSH (13:07)
--- NOTE | 2025-01-07 13:25 | ED.CHESTPAIN ---
HPI - Chest Pain General Chief Complaint: Chest Pain Stated Complaint: cp Time Seen by Provider: 01/07/25 11:51 History of Present Illness HPI narrative: Patient presenting here with severe chest pain, slight nausea and dyspepsia, started while he was driving around 11 this morning, felt like he was having some tingling and pain going down his left arm, has never had this before. Only medical history of mitral valve prolapse and hypertension. Related Data Home Medications ?Medication ?Instructions ?Recorded ?Confirmed ?Last Taken ?Type celecoxib 200 mg capsule (Celebrex) 200 mg PO DAILY 04/14/24 04/17/24 Unknown History omeprazole 20 mg capsule,delayed 20 mg PO DAILY 04/14/24 04/17/24 Unknown History release amlodipine 5 mg tablet 5 mg PO QAM 04/17/24 04/17/24 Unknown History ascorbic acid (vitamin C) 1,000 mg 1 g PO DAILY 04/17/24 04/17/24 Unknown History capsule cyanocobalamin (vitamin B-12) 500 500 mcg PO DAILY 04/17/24 04/17/24 Unknown History mcg tablet multivitamin (Daily Multi-Vitamin 1 tablet PO DAILY 04/17/24 04/17/24 Unknown History tablet) Allergies Allergy/AdvReac Type Severity Reaction Status Date / Time No Known Allergies Allergy Verified 01/07/25 11:48 Review of Systems Review of Systems: All systems reviewed & are unremarkable except as noted in HPI and below PMFSH Past Medical History Medical History (Updated 01/07/25 @ 17:00 by Meg Baxter MD) Hypertension Arthritis Surgical History Surgical History (Updated 04/14/24 @ 09:15 by Yessenia Pope CMA) History of ankle surgery Family History Family History Other Lymphoma Social History Social History Smoking status: Unknown if ever smoked Alcohol intake: current Drinks per week: 6 Lack of Transportation: No Lack of Food: Never True Current Housing: I Have Housing Concerned About Future Housing: No Difficulty Paying Gas/Electric Bills: No Difficulty Paying for Meds: No Currently Unemployed: No Education: High School Diploma/GED Difficulty w/ Childcare or Family Care: No Living arrangements: with family Additional living arrangements comments: SPOUSE Occupation/Education: occupation 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 EYES: EOMI, conjunctiva normal ENT: Hearing grossly intact LUNGS: Nonlabored breathing. HEART: [Regular rate and rhythm], equal pulses bilateral radial and DP ABD: [Soft], [nontender to palpation] EXT: Normal range of motion SKIN: [No rashes or lesions.] NEURO: [Alert and oriented x 3. No gross focal sensory or strength deficits.] PSYCH: Normal affect Course Vital Signs Vital signs: Vital Signs Temperature 97.9 F 01/07/25 11:40 Pulse Rate 89 01/07/25 11:40 Respiratory Rate 20 01/07/25 11:40 Blood Pressure 185/100 H 01/07/25 11:40 Pulse Oximetry 100 01/07/25 11:40 Oxygen Delivery Room Air 01/07/25 11:40 Temperature 97.9 F 01/07/25 11:40 Pulse Rate 67 01/07/25 15:58 Respiratory Rate 15 01/07/25 15:58 Blood Pressure 152/85 H 01/07/25 15:16 Pulse Oximetry 98 01/07/25 15:58 Oxygen Delivery Room Air 01/07/25 11:45 MDM - Chest Pain MDM Narrative Medical decision making narrative: ED COURSE AND MEDICAL DECISION MAKIN-year-old male presenting with chest pain. EKG done in triage negative for acute ischemic changes. Cardiac workup is initiated. EKG: Performed in triage and interpreted by me. Normal sinus rhythm. Rate 81. Normal axis. NJ normal. QRS duration normal. QTc normal. No pathologic Q waves. No ST segment elevation or depression to suggest acute ischemia. No RV strain pattern. On my evaluation patient looked extremely uncomfortable, I am concerned for possible STEMI, aortic disaster, I did ask for repeat EKG, EKG - 12-Lead: Performed at 1210. Interpreted by me. [Sinus rhythm]. Rate 76. [Normal] axis. NJ-interval 211. QRS duration [normal]. QTc [normal]. [No ST segment elevation or depression]. [T-wave normal]. Impression: No EKG evidence of acute ischemia or dysrhythmia. CTA thankfully negative here. Initial trop negative. On re-evaluation, he is now resting very comfortably, says that the pain has largely resolved. Repeat 3 hour EKG at 2:18 p.m. on my independent interpretation shows normal sinus rhythm, normal NJ, QRS, QTC, no obvious ST elevations or depressions. A 3 hour troponin is elevated at 0.203. 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 Patient updated on this plan and findings, he is agreeable to this. Discussed with hospitalist. Lab Data 01/07/25 11:39 01/07/25 11:39 Labs: Lab Results 01/07/25 01/07/25 Range/Units 11:39 14:52 WBC 10.0 (4.5-10.0) K/mm3 RBC 5.08 (4.6-6.20) M/mm3 Hgb 16.1 (14.0-18.0) g/dL Hct 47.0 (42.0-52.0) % MCV 92.5 (80-100) fl MCH 31.7 (26-34) pg MCHC 34.3 (32-36) g/dl RDW 12.1 (11.5-14.5) % Plt Count 247 (150-375) k/mm3 MPV 8.6 (7.4-10.4) fl Immature Gran % (Auto) 0.4 (0-0.5) % Neut % (Auto) 67.6 (45.5-73.1) % Lymph % (Auto) 23.0 (18.3-44.2) % Calloway % (Auto) 8.3 (2.6-8.5) % Eos % (Auto) 0.3 (0-4.4) % Baso % (Auto) 0.4 (0.2-1.2) % Lymph # (Auto) 2.29 (0.9-3.2) K/mm3 Calloway # (Auto) 0.8 H (0.1-0.6) K/mm3 Eos # (Auto) 0.0 (0-0.3) K/mm3 Baso # (Auto) 0.0 (0.0-0.1) K/mm3 Abs Immat Gran (auto) 0.04 H (0.00-0.031) K/mm3 Absolute Neuts (auto) 6.7 (1.3-6.7) K/mm3 Absolute Nucleated RBC 0.000 (0.0-0.012) K/mm3 Nucleated RBC % 0.0 (0.0-0.2) % PT 13.7 (11.1-14.7) Seconds INR 1.1 APTT 24.5 (22.3-36.8) Seconds Sodium 137 (137-145) mmol/L Potassium 3.7 (3.4-5.0) mmol/L Chloride 103 (98-107) mmol/L Carbon Dioxide 24 (22-30) mmol/L Anion Gap 10 (4-12) mmol/L BUN 21 H (9-20) mg/dL Creatinine 1.03 (0.7-1.3) mg/dL Estim Creat Clear Calc 92 ml/min Estimated GFR > 60 (59 - ) Glucose 113 H (65-110) mg/dL Calcium 9.8 (8.4-10.2) mg/dL Total Bilirubin 0.9 (0.2-1.3) mg/dL AST 38 (17-59) U/L ALT 34 (6-50) U/L Alkaline Phosphatase 68 (38-126) U/L Troponin I < 0.012 0.203 H* D (0.000-0.034) ng/mL Total Protein 8.2 (6.3-8.2) g/dL Albumin 4.7 (3.5-5.1) g/dL Lipase 86 (23-300) U/L Critical Care Time Critical Care Time Critical Care Time: Yes Total Critical Care Time: 31 Discharge Plan Discharge Clinical Impression: Acute non-ST elevation myocardial infarction (NSTEMI) Patient Disposition: Still a Patient Condition: Serious
[2025-01-07] MEDS: BELLADONNA ALK/PHENOB ELIX 10 ML, MAG HYDROX/ALUMINUM HYD/SIMETH 30 ML, LIDOCAINE 2% VI... PO (13:31)
--- NOTE | 2025-01-07 14:04 | ECG_ITS ---
Test Date: 2025-01-07 14:18:27 Measurements Intervals [place] Rate: 74 P: 36 [place]: 196 QRS: 1 QRSD: 130 T: 28 QT: 424 QTc: 471 Interpretive Statements SINUS RHYTHM INCOMPLETE RIGHT BUNDLE BRANCH BLOCK BORDERLINE ECG Compared to ECG 01/07/2025 12:10:11 NO SIGNIFICANT DIFFERENCE Electronically Signed On 01-08-2025 13:08:06 SWITCHBOARD MECHANIC by Ez Diaz M.D.
[2025-01-07 15:25] LABS: Troponin I 0.203 ng/mL (0.000-0.034)
[2025-01-07] MEDS: HEPARIN SOD/D5W 100 UNITS/ML 25,000 UNITS/250 ML BAG 10 UNITS IV CONT (16:04)
--- NOTE | 2025-01-07 16:29 | PC.NURSE ---
Pt reports pain has significantly improved, states at 0-1 if anything at this time. Pt watching football on TV. Questions regarding admission answered, denies any needs at this time. Pt instructed to let RN know if chest pain returns, as we will try ordered Nitroglycerin tabs. Call light in reach.
--- NOTE | 2025-01-07 16:32 | WPCEDHO ---
ED Hand Off Checklist All vitals saved: yes IV Site documented: yes All med administrations documented: yes -- pt has denied any chest pain since Nitro tabs were ordered, instructed to let RN know if chest pain returns Triage Note Triage Note Pt with hx mitral valve prolapse, 01/07/25 11:40 HTN presents with acute onset of left neck and shoulder pain, left arm tingling, left chest pain and pressure that started at approximately 11:00 this am while driving. Pt is very diaphoretic, states pain in chest has been worsening. Pt brought back straight to room where EKG completed. States earlier this morning he had headache and felt off, afebrile, no recent sick symptoms. Allergies No Known Allergies Allergy (Verified 01/07/25 11:48) Family History (Last Reviewed 04/14/24 @ 09:08 by Yessenia Pope, [facility]) Other Lymphoma Active Medications including assessments/comments Heparin Sodium/Dextrose (Heparin Sodium/D5w 100 Units/Ml) 25,000 units in 250 mls @ 10 mls/hr IV CONT .Q24H GUILLAUME; Protocol Last Admin: 01/07/25 16:04 Dose: 1,000 units/hr, 10 mls/hr Documented By: CLAIR Co-signed By: BECKY Infusion/Titration Document 01/07/25 16:04 CLAIR (Rec: 01/07/25 16:07 CLAIR [id number]) Co-signed By Tiny Griffith RN Intake IV Site Peripheral Access Left Antecubital Container Volume 250 Waste Amount 0 Dosing Dose Rate 1,000 Infusion Rate 10 Increase/Decrease Started Elapsed Time Elapsed Time ( 0m minutes) Heparin Infusion Assessment Document 01/07/25 16:04 CLAIR (Rec: 01/07/25 16:07 CLAIR [id number]) Co-signed By Tiny Griffith RN Heparin Infusion Assessment Heparin Infusion Initiated Action Administered/Completed Medications Discontinued Medications Al Hydrox/Mg Hydrox/Simethicone (Mag Hydrox/Al Hydrox/Simeth 30 Ml Udc) 30 ml PO ONCE STA Stop: 01/07/25 13:23 Last Admin: 01/07/25 14:07 Dose: Not Given Documented By: CLAIR Non-Admin Reason: Order Discontinued Aspirin (Aspirin 81 Mg Chewable Tablet) 324 mg PO ONCE STA Stop: 01/07/25 11:31 Last Admin: 01/07/25 11:35 Dose: 324 mg Documented By: JO-ANN Belladonna Alkaloids/Phenobarbital 10 ml/ Al Hydrox /Mg Hydrox/Simethicone 30 ml/Lidocaine HCl 10 ml 0 ml PO ONCE STA Stop: 01/07/25 13:26 Last Admin: 01/07/25 13:31 Dose: 50 ml Documented By: CLAIR Famotidine (Famotidine 20 Mg/2 Ml Vial) 20 mg IV PUSH ONCE STA Stop: 01/07/25 12:46 Last Admin: 01/07/25 13:03 Dose: 20 mg Documented By: CLAIR Fentanyl Citrate (Fentanyl Citrate Inj (*Crx) 100 Mcg/2 Ml Vial) 100 mcg IV PUSH ONCE STA Stop: 01/07/25 11:57 Last Admin: 01/07/25 12:04 Dose: 100 mcg Documented By: JO-ANN Heparin Sodium (Porcine) (Heparin Sodium 5,000 Units/Ml Vial) 4,000 units IV PUSH ONCE ONE Stop: 01/07/25 15:30 Last Admin: 01/07/25 16:01 Dose: 4,000 units Documented By: CLAIR Co-signed By: BECKY Hydromorphone HCl (Hydromorphone Hcl Inj (*Crx) 1 Mg/Ml Syr) 1 mg IV PUSH ONCE STA Stop: 01/07/25 12:46 Last Admin: 01/07/25 13:00 Dose: 1 mg Documented By: CLAIR Pantoprazole Sodium (Pantoprazole Sodium Iv 40 Mg Vial) 40 mg IV PUSH ONCE STA Stop: 01/07/25 12:46 Last Admin: 01/07/25 13:07 Dose: 40 mg Documented By: CLAIR Notes 01/07/25 16:29 Nurse Note by Barbie Malin Pt reports pain has significantly improved, states at 0-1 if anything at this time. Pt watching football on TV. Questions regarding admission answered, denies any needs at this time. Pt instructed to let RN know if chest pain returns, as we will try ordered Nitroglycerin tabs. Call light in reach. Initialized on 01/07/25 16:29 - END OF NOTE 01/07/25 12:02 Nurse Note by Luana Culver pt back from ct with complaints of feeling like he's going to pass out, patient very diaphoretic, stating that it's difficult to breath. edp at bedside Initialized on 01/07/25 12:02 - END OF NOTE Interventions/Assessments IV / Saline Lock, Insert Start: 01/07/25 11:30 Freq: STAT Status: Active Protocol: Document 01/07/25 14:45 CLAIR (Rec: 01/07/25 16:31 CLAIR [id number]) IV Assessment Peripheral Access Right Antecubital IV Catheter Access Initiated IV Insertion Date 01/07/25 IV Insertion Time 14:45 Catheter Gauge 20 IV Insertion 1 Attempts Ultrasound Used for No Placement IV Site Assessment WNL IV Care and WNL,Dressing Applied, Dated, Timed, and Initialed Maintenance PA: Cardiovascular Assessment Start: 01/07/25 11:29 Freq: Status: Active Protocol: Document 01/07/25 11:45 CLAIR (Rec: 01/07/25 15:14 CLAIR [id number]) Cardiovascular Assessment Cardiovascular Chest Pain,Chest Pressure,Diaphoresis,Tingling Symptoms Skin Description Clammy Rhythm/Strength Monitor Rhythm Regular EKG Rythm Sinus Rhythm Chest Pain Assessment Chest Pain Intensity 9 Chest Pain Location Left Chest Description and Pressure,Sharp Symptoms Chest Pain Duration 15-30 Minutes Chest Pain Radiation Left Arm,Neck PA: Respiratory Assessment Start: 01/07/25 11:29 Freq: Status: Active Protocol: Document 01/07/25 11:45 CLAIR (Rec: 01/07/25 15:14 CLAIR [id number]) Respiratory Assessment Symptoms None Effort Normal Depth Normal Chest Expansion Symmetrical Adult Capillary Normal/Less than 2 Seconds Refill Bilateral Throughout Phase Inspiratory & Expiratory Lung Sounds Clear Cough Description None Oxygen Delivery Oxygen Delivery Room Air Pulse Oximetry (90- 100 100 %) Last Vital Signs Temperature 97.9 F 01/07/25 11:40 Pulse Rate 67 01/07/25 15:58 Respiratory Rate 15 01/07/25 15:58 Pulse Oximetry 98 01/07/25 15:58 Blood Pressure 152/85 H 01/07/25 15:16 Blood Pressure Mean 102 01/07/25 15:16 Blood Pressure Position Sitting 01/07/25 11:40 Oxygen Delivery Room Air 01/07/25 11:45 Weight 112 kg 01/07/25 11:40 Last Result - Abnormals Only [place] # (Auto) 0.8 K/mm3 (0.1-0.6) H 01/07/25 11:39 Abs Immat Gran (auto) 0.04 K/mm3 (0.00-0.031) H 01/07/25 11:39 BUN 21 mg/dL (9-20) H 01/07/25 11:39 Glucose 113 mg/dL (65-110) H 01/07/25 11:39 Troponin I 0.203 ng/mL (0.000-0.034) H* D 01/07/25 14:52 Most Recent Suicide Severity Rating Suicide Severity Rating NO RISK INDICATED 01/07/25 11:40
--- NOTE | 2025-01-07 17:09 | ADMGEN ---
This patient, Neno Flores, was admitted to IMU Room 202-01. Patient/family oriented to hospital policies and general routines including ID bracelet, bed and alarms, visiting hours, pain management, procedures, bathroom and other care routines, personal items, smoking policy, room service/diet, and visiting hours. Information on how to activate the Rapid Response Team has been discussed. Patient/Family are encouraged to report perceived risks to care and to ask questions if they do not understand what they are told or what they should do.
--- NOTE | 2025-01-07 17:26 | P.HP_ITS ---
H&P: HPI History of Present Illness Date/Time: 01/07/25 17:26 Chief Complaint: Chest pain with diaphoresis Narrative: 59-year-old male who presents the hospital with severe chest pain, nausea, diaphoresis and dyspnea. He states that while he was driving he had pain and tingling going down his left arm that he has never felt before. He has a history of mitral valve prolapse and hypertension. Patient states that he was driving when all of a sudden he had acute pain in his chest radiating down his left arm going up his neck. He states that he called his and told her he thought he was having a heart attack and drove straight to the emergency room. Patient denies shortness of breath or nausea. At bedside patient is pain free. Patient appears to be anxious. CBC is within normal limits, BMP is within normal limits 1st troponin is negative followed by 0.203. CT chest abdomen pelvis with no acute findings. EKG in emergency room shows sinus rhythm a a with possible right ventricle conduction delay nonspecific ST-wave elevation Review of Systems Review of Systems: 12 systems were reviewed and are negativ e except for as per HPI. [facility] Past Medical History Medical History (Updated 01/07/25 @ 17:29 by Radha Medina APRN) Hypertension Arthritis Surgical History Surgical History (Updated 04/14/24 @ 09:15 by Yessenia Pope CMA) History of ankle surgery Family History Family History Other Lymphoma Social History Social History Smoking status: Never smoker Alcohol intake: current Drinks per week: 50 Substance use: never Lack of Transportation: No Lack of Food: Never True Current Housing: I Have Housing Concerned About Future Housing: No Difficulty Paying Gas/Electric Bills: No Difficulty Paying for Meds: No Currently Unemployed: No Education: High School Diploma/GED Difficulty w/ Childcare or Family Care: No Living arrangements: with family Additional living arrangements comments: [facility] Occupation/Education: occupation 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 [employer] Spiritual care concerns: No Meds Home Medications and Allergies Home Medications ?Medication ?Instructions ?Recorded ?Confirmed ?Type celecoxib 200 mg capsule (Celebrex) 200 mg PO DAILY 01/07/25 History omeprazole 20 mg capsule,delayed 20 mg PO DAILY 01/07/25 History release amlodipine 5 mg tablet 5 mg PO QAM 04/17/24 5 History ascorbic acid (vitamin C) 1,000 mg 1 g PO DAILY 01/07/25 History capsule cyanocobalamin (vitamin B-12) 500 500 mcg PO DAILY 09/0401/07/25 History mcg tablet multivitamin (Daily Multi-Vitamin 1 tablet PO DAILY 01/07/25 History tablet) Allergies Allergy/AdvReac Type Severity Reaction Status Date / Time No Known Allergies Allergy Verified 01/07/25 17:14 Vital Signs Vital Signs - 24 hr 01/07/25 11:40 01/07/25 11:45 01/07/25 12:38 Temperature 97.9 F Pulse Rate 89 85 Respiratory Rate 20 20 Blood Pressure 185/100 H 181/87 H Pulse Oximetry 100 100 100 Oxygen Delivery Room Air Room Air 01/07/25 12:39 01/07/25 12:45 01/07/25 12:46 Temperature Pulse Rate 83 82 83 Respiratory Rate 23 H 16 19 Blood Pressure 179/104 H Pulse Oximetry 100 100 100 Oxygen Delivery 01/07/25 13:00 01/07/25 13:13 01/07/25 13:15 Temperature Pulse Rate 85 83 87 Respiratory Rate 13 17 16 Blood Pressure 164/96 H Pulse Oximetry Oxygen Delivery 01/07/25 13:30 01/07/25 13:31 01/07/25 13:45 Temperature Pulse Rate 69 79 75 Respiratory Rate 12 14 12 Blood Pressure 177/92 H Pulse Oximetry 98 Oxygen Delivery 01/07/25 13:46 01/07/25 14:00 01/07/25 14:01 Temperature Pulse Rate 79 78 86 Respiratory Rate 12 14 13 Blood Pressure 161/93 H 180/95 H Pulse Oximetry 99 Oxygen Delivery 01/07/25 14:30 01/07/25 14:54 01/07/25 15:00 Temperature Pulse Rate 80 71 74 Respiratory Rate 15 16 17 Blood Pressure Pulse Oximetry Oxygen Delivery 01/07/25 15:01 01/07/25 15:02 01/07/25 15:15 Temperature Pulse Rate 75 78 74 Respiratory Rate 18 18 15 Blood Pressure 148/87 H Pulse Oximetry 100 Oxygen Delivery 01/07/25 15:16 01/07/25 15:58 01/07/25 17:14 Temperature 97.8 F Pulse Rate 74 67 70 Respiratory Rate 16 15 18 Blood Pressure 152/85 H 155/87 H Pulse Oximetry 99 98 100 Oxygen Delivery Exam Narrative: General: well appearing, appears stated age. HEENT: normocephalic, atraumatic. Mucous membranes moist. EOMI, PERRLA, bilateral sclera anicteric, no conjunctival injection. Neck supple without JVD, lymphadenopathy, or bruit. Respiratory: clear bilaterally. No rales/rhonic/wheezes. Cardiovascular: Regular rate and rhythm, normal S1-S2. No murmurs, rubs, or clicks. PMI is nondisplaced, capillary refill less than 3 second. Abdomen: Soft, round, no pulsatile masses, nondistended and nontender. No rebound, no guarding. Bowel sounds present to all four quadrants. No high pitch or tinkling sounds, resonant to percussion. Extremities: No cyanosis, clubbing, or edema present. Pulses are palpable 2/2. Active ROM to all four extremities. Neuro: Alert and orientated x 4. PERRLA. Cranial nerves 2-12 intact without focal deficit. Skin: Warm, dry, and intact, without rash, erythema, or lesion. Psych: pleasant, cooperative, normal speech, normal affect, no hallucinations, no dysarthia H&P: Results Labs Labs: Short CBC 01/07/25 Range/Units 11:39 WBC 10.0 (4.5-10.0) K/mm3 Hgb 16.1 (14.0-18.0) g/dL Hct 47.0 (42.0-52.0) % Plt Count 247 (150-375) k/mm3 BMP 01/07/25 11:39 Sodium 137 Potassium 3.7 Chloride 103 Carbon Dioxide 24 BUN 21 H Creatinine 1.03 Glucose 113 H Calcium 9.8 Cardiac Enzymes 01/07/25 01/07/25 Range/Units 11:39 14:52 Troponin I < 0.012 0.203 H* D (0.000-0.034) ng/mL Liver Function 01/07/25 Range/Units 11:39 Total Bilirubin 0.9 (0.2-1.3) mg/dL AST 38 (17-59) U/L ALT 34 (6-50) U/L Alkaline Phosphatase 68 (38-126) U/L Albumin 4.7 (3.5-5.1) g/dL Assessment and Plan Assessment and plan (1) Acute non-ST elevation myocardial infarction (NSTEMI): Code(s): I21.4 - Non-ST elevation (NSTEMI) myocardial infarction Status: Acute Assessment and Plan: Cardiology consulted Heparin drip per protocol NPO at midnight Patient will likely have a cardiac catheterization tomorrow Aspirin given in ED Lipid panel (2) Hypertension: Code(s): I10 - Essential (primary) hypertension Status: Acute Assessment and Plan: Continue home medication Quality VTE Prophylaxis VTE prophylaxis: mechanical ordered and pharmacologic ordered Hospitalist MIPS Advance Care Plan I have confirmed that the patient's Advanced Care Plan is present, code status is documented, or surrogate decision maker is listed in patient medical record.: Yes Medication Reconciliation I have utilized all available resources to obtain, update and review the patients current medications (includes all prescriptions, OTC, herbals, cannabis, and nutritional supplements).: Yes
[2025-01-07 17:32] LABS: Hematocrit 42.5 % (42.0-52.0); Hemoglobin 14.6 g/dL (14.0-18.0); Immature Granulocyte Percent A 0.2 % (0-0.5); Lymphocytes Absolute Auto 0.97 K/mm3 (0.9-3.2); Mean Corpuscular HGB Conc 34.4 g/dl (32-36); Mean Corpuscular Hemoglobin 31.9 pg (26-34); Mean Corpuscular Volume 93.0 fl (80-100); Nucleated Red Blood Cells Absolute Auto 0.000 K/mm3 (0.0-0.012); Nucleated Red Blood Cells Perc 0.0 % (0.0-0.2); Platelet Count Result 198 k/mm3 (150-375); Red Blood Count 4.57 M/mm3 (4.6-6.20); White Blood Count 10.0 K/mm3 (4.5-10.0)
[2025-01-07 17:46] LABS: INR 1.1; Prothrombin Time 14.2 Seconds (11.1-14.7)
[2025-01-07 17:47] LABS: Partial Thromboplastin Time 45.9 Seconds (22.3-36.8)
[2025-01-07 17:58] LABS: Troponin I 0.695 ng/mL (0.000-0.034)
--- NOTE | 2025-01-07 18:31 | ECG_ITS ---
Test Date: 2025-01-07 18:40:39 Measurements Intervals [place] Rate: 67 P: 50 TN: 233 QRS: -1 QRSD: 129 T: 29 QT: 423 QTc: 447 Interpretive Statements SINUS RHYTHM WITH FIRST DEGREE AV BLOCK INCOMPLETE RIGHT BUNDLE BRANCH BLOCK ABNORMAL ECG Compared to ECG 01/07/2025 14:18:27 NO SIGNIFICANT CHANGE Electronically Signed On 01-08-2025 13:10:13 CREDIT ANALYST by Ez Diaz M.D.
[2025-01-07 22:31] LABS: Partial Thromboplastin Time 39.7 Seconds (22.3-36.8)
[2025-01-08] VITALS (23 sets, daily range): BP systolic 137–162; BP diastolic 75–98; PULSE 60–85; RESP 13–18; TEMP 36.5–36.6; O2SAT 96–99
--- NOTE | 2025-01-08 04:08 | ECG_ITS ---
Test Date: 2025-01-08 04:17:07 Measurements Intervals [place] Rate: 61 P: 35 [place]: 229 QRS: 2 QRSD: 125 T: 41 QT: 446 QTc: 452 Interpretive Statements SINUS RHYTHM WITH FIRST DEGREE AV BLOCK INCOMPLETE RIGHT BUNDLE BRANCH BLOCK T-WAVE ABNORMALITY BE COMPATIBLE WITH ANTERIOR ISCHEMIA ABNORMAL ECG Compared to ECG 01/07/2025 18:40:39 PRECORDIAL BIPHASIC T-WAVE INVERSION NOTED Electronically Signed On 01-08-2025 13:18:49 LUNCH TRUCK OPERATOR by Ez Diaz M.D.
[2025-01-08 04:25] LABS: Hematocrit 45.0 % (42.0-52.0); Hemoglobin 15.3 g/dL (14.0-18.0); Immature Granulocyte Percent A 0.3 % (0-0.5); Lymphocytes Absolute Auto 1.20 K/mm3 (0.9-3.2); Mean Corpuscular HGB Conc 34.0 g/dl (32-36); Mean Corpuscular Hemoglobin 31.5 pg (26-34); Mean Corpuscular Volume 92.8 fl (80-100); Nucleated Red Blood Cells Absolute Auto 0.000 K/mm3 (0.0-0.012); Nucleated Red Blood Cells Perc 0.0 % (0.0-0.2); Platelet Count Result 196 k/mm3 (150-375); Red Blood Count 4.85 M/mm3 (4.6-6.20); White Blood Count 7.4 K/mm3 (4.5-10.0)
[2025-01-08] MEDS: MORPHINE SULFATE (*CRX) 4 MG/ML INJ 2 MG IV PUSH ×2 (04:27→21:57)
[2025-01-08 04:38] LABS: Partial Thromboplastin Time 71.5 Seconds (22.3-36.8)
[2025-01-08 04:44] LABS: Anion Gap 3 mmol/L (4-12); Blood Urea Nitrogen 15 mg/dL (9-20); Calcium 9.1 mg/dL (8.4-10.2); Carbon Dioxide 28 mmol/L (22-30); Chloride 102 mmol/L (98-107); Cholesterol 235 mg/dL (0-200); Estimated CRCL calculation 126 ml/min; Estimated Glomerular Filt Rate > 60; Glucose 116 mg/dL (65-110); HDL Direct 84 mg/dL; Potassium 4.2 mmol/L (3.4-5.0); Sodium 133 mmol/L (137-145); Triglycerides 58 mg/dL (<150)
[2025-01-08 04:52] LABS: Troponin I 1.610 ng/mL (0.000-0.034)
[2025-01-08] MEDS: NITROGLYCERIN SL 0.4 MG TABLET SUBLINGUAL (05:21)
[2025-01-08] MEDS: METOPROLOL TARTRATE 12.5 MG TABLET PO (08:04)
[2025-01-08] MEDS: THERAPEUTIC MULTIVITAMINS/MINERALS TAB (*BKC) 1 TABLET PO (08:04)
[2025-01-08] MEDS: PANTOPRAZOLE 40 MG TABLET PO (08:05)
[2025-01-08] MEDS: CELECOXIB 200 MG CAPSULE PO (08:05)
[2025-01-08] MEDS: FOLIC ACID 1 MG TABLET PO (08:05)
[2025-01-08] MEDS: LORazepam (*CRX) 1 MG TABLET 2 MG PO (08:05)
--- NOTE | 2025-01-08 09:05 | P.PNIM_ITS ---
Progress Note: A&P Assessment and Plan (1) Acute non-ST elevation myocardial infarction (NSTEMI): Code(s): I21.4 - Non-ST elevation (NSTEMI) myocardial infarction Status: Acute Assessment and Plan: Cardiology consulted Heparin drip per protocol NPO at midnight Patient will likely have a cardiac catheterization tomorrow Aspirin given in ED Lipid panel (2) Hypertension: Code(s): I10 - Essential (primary) hypertension Status: Acute Assessment and Plan: Continue home medication Plan This is a 59-year-old male who presented with severe chest pain slight nausea and dyspepsia started while driving around 11 on 01/07/2025. He also felt some tingling and pain going down his left arm. History of hypertension and mitral valve prolapse. Vitals with hypertension with blood pressure 185/100 on presentation. His EKG showed normal sinus rhythm with no acute ST-T changes. Laboratory workup revealed WBC of 10 hemoglobin 16.1 platelet count of 247. Sodium 137 potassium 3.7 chloride 103 bicarbonate 24 BUN 21 creatinine 1 blood glucose 113. Initial troponin was negative at less than 0.012 subsequent troponin 0.203-suggestive of non ST elevation VA. troponin continues to trend up to 0.695-1.610. LDL 118. Chest x-ray no acute findings probable strandy atelectasis. Chest abdomen pelvis CTA showed no acute findings. He received aspirin heparin drip was started. Cardiology was consulted. Acute non ST elevation VA IV heparin add aspirin 81 mg daily. Metoprolol added. Add Statin. He is scheduled for left heart catheterization today. Hypertension GERD DVT prophylaxis on heparin drip. Code status full code Subjective Date/time seen: 01/08/25 09:05 Interval history: No overnight events. History reviewed. Chart reviewed. No further chest pains. Denies any shortness of breath. Review of Systems Review of Systems: All systems reviewed & are unremarkable except as noted in HPI and below Exam Narrative: General: well appearing, appears stated age. HEENT: normocephalic, atraumatic. Mucous membranes moist. Respiratory: clear bilaterally. No rales/rhonic/wheezes. Cardiovascular: Regular rate and rhythm, normal S1-S2. No murmurs, rubs, or clicks. Abdomen: Soft, round, no pulsatile masses, nondistended and nontender. Extremities: No cyanosis, clubbing, or edema present. Pulses are palpable 2/2. Active ROM to all four extremities. Neuro: Alert and orientated x 4. PERRLA. Cranial nerves 2-12 intact without focal deficit. Skin: Warm, dry, and intact, without rash, erythema, or lesion. Psych: pleasant, cooperative, normal speech, normal affect, no hallucinations, no dysarthia Objective Data Vital Signs Vital Signs: Vital Signs - 24 hr 01/07/25 11:40 01/07/25 11:45 01/07/25 12:38 Temperature 97.9 F Pulse Rate 89 85 Pulse Rate [Monitor] Respiratory Rate 20 20 Blood Pressure 185/100 H 181/87 H Pulse Oximetry 100 100 100 Oxygen Delivery Room Air Room Air 01/07/25 12:39 01/07/25 12:45 01/07/25 12:46 Temperature Pulse Rate 83 82 83 Pulse Rate [Monitor] Respiratory Rate 23 H 16 19 Blood Pressure 179/104 H Pulse Oximetry 100 100 100 Oxygen Delivery 01/07/25 13:00 01/07/25 13:13 01/07/25 13:15 Temperature Pulse Rate 85 83 87 Pulse Rate [Monitor] Respiratory Rate 13 17 16 Blood Pressure 164/96 H Pulse Oximetry Oxygen Delivery 01/07/25 13:30 01/07/25 13:31 01/07/25 13:45 Temperature Pulse Rate 69 79 75 Pulse Rate [Monitor] Respiratory Rate 12 14 12 Blood Pressure 177/92 H Pulse Oximetry 98 Oxygen Delivery 01/07/25 13:46 01/07/25 14:00 01/07/25 14:01 Temperature Pulse Rate 79 78 86 Pulse Rate [Monitor] Respiratory Rate 12 14 13 Blood Pressure 161/93 H 180/95 H Pulse Oximetry 99 Oxygen Delivery 01/07/25 14:30 01/07/25 14:54 01/07/25 15:00 Temperature Pulse Rate 80 71 74 Pulse Rate [Monitor] Respiratory Rate 15 16 17 Blood Pressure Pulse Oximetry Oxygen Delivery 01/07/25 15:01 01/07/25 15:02 01/07/25 15:15 Temperature Pulse Rate 75 78 74 Pulse Rate [Monitor] Respiratory Rate 18 18 15 Blood Pressure 148/87 H Pulse Oximetry 100 Oxygen Delivery 01/07/25 15:16 01/07/25 15:58 01/07/25 17:14 Temperature 97.8 F Pulse Rate 74 67 70 Pulse Rate [Monitor] Respiratory Rate 16 15 18 Blood Pressure 152/85 H 155/87 H Pulse Oximetry 99 98 100 Oxygen Delivery 01/07/25 18:00 01/07/25 18:24 01/07/25 20:00 Temperature 97.9 F Pulse Rate 73 63 Pulse Rate [Monitor] 65 Respiratory Rate 14 Blood Pressure 146/90 H Pulse Oximetry 99 Oxygen Delivery 01/07/25 20:00 01/07/25 20:00 01/07/25 20:00 Temperature Pulse Rate 65 Pulse Rate [Monitor] 63 Respiratory Rate Blood Pressure Pulse Oximetry Oxygen Delivery Room Air 01/07/25 22:00 01/08/25 00:00 01/08/25 00:00 Temperature 97.8 F Pulse Rate 66 72 Pulse Rate [Monitor] 65 Respiratory Rate 17 Blood Pressure 153/92 H Pulse Oximetry 98 Oxygen Delivery 01/08/25 00:00 01/08/25 00:00 01/08/25 02:00 Temperature Pulse Rate 65 62 Pulse Rate [Monitor] Respiratory Rate Blood Pressure Pulse Oximetry Oxygen Delivery Room Air 01/08/25 04:00 01/08/25 04:00 01/08/25 04:00 Temperature 97.7 F Pulse Rate 66 Pulse Rate [Monitor] 67 Respiratory Rate 14 Blood Pressure 155/98 H 161/91 H Pulse Oximetry 99 Oxygen Delivery Room Air 01/08/25 04:00 01/08/25 06:00 01/08/25 07:42 Temperature 97.8 F Pulse Rate 82 61 62 Pulse Rate [Monitor] Respiratory Rate 16 Blood Pressure 147/96 H Pulse Oximetry 96 Oxygen Delivery 01/08/25 08:04 Temperature Pulse Rate 67 Pulse Rate [Monitor] Respiratory Rate Blood Pressure Pulse Oximetry Oxygen Delivery Intake/Output Intake/Output: Intake & Output 01/05/25 01/06/25 01/07/25 01/08/25 23:59 23:59 23:59 23:59 Intake Total 66 684 Output Total 790 Balance 66 -106 Meds/Results Medications: Active Medications Generic Name Dose Route Start Last Admin Trade Name Freq PRN Reason Stop Dose Admin Acetaminophen 650 mg 01/07/25 17:30 Acetaminophen 325 Mg Tablet PO Q4H PRN Mild Pain (1-3) or Fever Amlodipine Besylate 5 mg 01/08/25 09:00 01/08/25 08:05 Amlodipine Besylate 5 Mg Tablet PO 5 mg QAM GUILLAUME Administration Celecoxib 200 mg 01/08/25 09:00 01/08/25 08:05 Celecoxib 200 Mg Capsule PO 200 mg DAILY GUILLAUME Administration Folic Acid 1 mg 01/08/25 09:00 01/08/25 08:05 Folic Acid 1 Mg Tablet PO 1 mg DAILY GUILLAUME Administration Heparin Sodium (Porcine) 4,000 units 01/07/25 15:29 01/07/25 22:40 Heparin Sodium 5,000 Units/Ml Vial IV PUSH 4,000 units PRN PRN Administration aPTT less than 55 seconds Heparin Sodium (Porcine) 4,000 units 01/07/25 15:29 Heparin Sodium 5,000 Units/Ml Vial IV PUSH PRN PRN aPTT 55 - 70 seconds Heparin Sodium/Dextrose 25,000 units in 250 mls @ 14 mls/hr 01/07/25 15:30 01/08/25 04:40 Heparin Sodium/D5w 100 Units/Ml IV CONT 1,400 units/hr .[id number] GUILLAUME 14 mls/hr Protocol Titration 1,400 UNITS/HR Lorazepam 2 mg 01/07/25 18:24 01/08/25 08:05 Lorazepam (*Crx) 1 Mg Tablet PO 2 mg Q4HR PRN Administration Alcohol Withdrawal Metoprolol Tartrate 12.5 mg 01/08/25 09:00 01/08/25 08:04 Metoprolol Tartrate 12.5 Mg Tablet PO 12.5 mg Q12HR GUILLAUME Administration Multivitamins/Calcium 1 tablet 01/08/25 09:00 01/08/25 08:04 Therapeutic Multivitamins/Minerals Tab (*Bkc) PO 1 tablet DAILY GUILLAUME Administration Nitroglycerin 0.4 mg 01/07/25 15:39 Nitroglycerin Sl 0.4 Mg Tablet SUBLINGUAL Q5MIN PRN Chest Pain Nitroglycerin 0.4 mg 01/08/25 05:46 Nitroglycerin Sl 0.4 Mg Tablet SUBLINGUAL Q5MIN PRN Chest Pain Pantoprazole Sodium 40 mg 01/08/25 09:00 01/08/25 08:05 Pantoprazole 40 Mg Tablet PO 40 mg QAM GUILLAUME Administration Radiology Results: ITS Impressions Chest X-Ray 01/07/25 12:07 IMPRESSION: Probable strandy atelectasis on the frontal view. No definite infiltrate or air space disease seen on the lateral. Clinically correlate. Chest/Abdomen/Pelvis CTA 01/07/25 12:34 IMPRESSION: 1. No acute process is identified. No dissection or aneurysm Labs Labs: Laboratory Results - last 24 hr 01/07/25 01/07/25 01/07/25 11:39 14:52 17:26 WBC 10.0 10.0 RBC 5.08 4.57 L Hgb 16.1 14.6 Hct 47.0 42.5 MCV 92.5 93.0 MCH 31.7 31.9 MCHC 34.3 34.4 RDW 12.1 12.1 Plt Count 247 198 MPV 8.6 8.7 Immature Gran % (Auto) 0.4 0.2 Neut % (Auto) 67.6 82.7 H Lymph % (Auto) 23.0 9.7 L [place] % (Auto) 8.3 7.1 Eos % (Auto) 0.3 0.0 Baso % (Auto) 0.4 0.3 Lymph # (Auto) 2.29 0.97 [place] # (Auto) 0.8 H 0.7 H Eos # (Auto) 0.0 0.0 Baso # (Auto) 0.0 0.0 Abs Immat Gran (auto) 0.04 H 0.02 Absolute Neuts (auto) 6.7 8.3 H Absolute Nucleated RBC 0.000 0.000 Nucleated RBC % 0.0 0.0 PT 13.7 14.2 INR 1.1 1.1 APTT 24.5 45.9 H Sodium 137 Potassium 3.7 Chloride 103 Carbon Dioxide 24 Anion Gap 10 BUN 21 H Creatinine 1.03 Estim Creat Clear Calc 92 Estimated GFR > 60 Glucose 113 H Calcium 9.8 Total Bilirubin 0.9 AST 38 ALT 34 Alkaline Phosphatase 68 Troponin I < 0.012 0.203 H* D 0.695 H* D Total Protein 8.2 Albumin 4.7 Triglycerides Cholesterol LDL Cholesterol Direct HDL Direct Lipase 86 01/07/25 01/08/25 22:10 04:21 WBC 7.4 RBC 4.85 Hgb 15.3 Hct 45.0 MCV 92.8 MCH 31.5 MCHC 34.0 RDW 12.1 Plt Count 196 MPV 9.0 Immature Gran % (Auto) 0.3 Neut % (Auto) 75.4 H Lymph % (Auto) 16.2 L [place] % (Auto) 7.4 Eos % (Auto) 0.3 Baso % (Auto) 0.4 Lymph # (Auto) 1.20 [place] # (Auto) 0.6 Eos # (Auto) 0.0 Baso # (Auto) 0.0 Abs Immat Gran (auto) 0.02 Absolute Neuts (auto) 5.6 Absolute Nucleated RBC 0.000 Nucleated RBC % 0.0 PT INR APTT 39.7 H 71.5 H Sodium 133 L Potassium 4.2 Chloride 102 Carbon Dioxide 28 Anion Gap 3 L BUN 15 D Creatinine 0.74 Estim Creat Clear Calc 126 Estimated GFR > 60 Glucose 116 H Calcium 9.1 Total Bilirubin AST ALT Alkaline Phosphatase Troponin I 1.610 H* Total Protein Albumin Triglycerides 58 Cholesterol 235 H LDL Cholesterol Direct 118 HDL Direct 84 Lipase
[2025-01-08] MEDS: ASPIRIN 81 MG ENTERIC TABLET PO (09:47)
--- NOTE | 2025-01-08 10:06 | PM.CNCAR ---
Assessment and Plan Assessment and plan (1) Acute non-ST elevation myocardial infarction (NSTEMI): Code(s): I21.4 - Non-ST elevation (NSTEMI) myocardial infarction Status: Acute Plan This is a 59-year-old man with hypertension no previous overt history of coronary disease presenting with acute coronary syndrome/non ST elevation [place]. He is stable on heparin aspirin and statin therapy. Recommended proceeding with coronary angiography today to delineate his anatomy and guide treatment decisions. He understands the situation well has no questions and would like to proceed. Plans will be made for bringing him to the labor expediter later today Ez Diaz MD [facility] History of Present Illness History of Present Illness Consult date/time: 01/08/25 10:06 Reason For Visit: NSTEMI Narrative: This is a very pleasant 59-year-old man I am seeing at the request of the hospitalist this morning because of non ST elevation IN. The patient is unknown to me prior to this consultation he does not have any previous history of heart disease. He says that he has been having symptoms of exertional shortness of breath with some discomfort in the anterior aspect of his neck for about 2-3 months. He does some walking/exertion on his job and at times he would notice exertion would cause the symptoms but then at times it would not. Yesterday he had symptoms like this that began after exerting himself that were more persistent and did not resolve. They were more severe associated with paresthesias in the left arm and obvious pressure in the chest. He became concerned that he was having a myocardial infarction and drove himself to the emergency room. In the ED he was found to be in moderate distress. His electrocardiogram showed sinus rhythm with incomplete right bundle branch block but no changes of injury or ischemia. His pain settled down while he was in the emergency room and he was admitted for further evaluation. His troponin levels in series did rise to a maximum of 1.6. He had a series of electrocardiograms with benign looking tracings until the last ECG today which demonstrates some biphasic T-waves across the precordial leads. In this setting I am seeing him in consultation he is comfortable with IV heparin running and is eating with his . He does not have any prior cardiac history he does have hypertension which has been treated with amlodipine no history of dyslipidemia or diabetes. 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 His mother of a myocardial infarction in her 80s. There is no family history of premature coronary disease. Review of Systems Constitutional: Constitutional: Reports no additional constitutional complaints Eyes: Eyes: Reports no additional eye complaints ENT: Reports system reviewed and no additional complaints, except as documented Cardiovascular: Cardiovascular: Reports as per HPI Respiratory: Respiratory: Reports dyspnea on exertion Gastrointestinal: Gastrointestinal: Reports no additional gastrointestinal complaints Musculoskeletal: Musculoskeletal: Reports no additional musculoskeletal complaints Integumentary/Breasts: Skin/Breast: Reports system reviewed and no additional complaints, except as docu Neurologic: Reports system reviewed and no additional complaints, except as documented Endocrine: Endocrine: Reports no additional endocrine complaints Hematologic/Lymphatic: Hematologic/Lymphatic: Reports no additional hematologic/lymphatic complaints Allergic/Immunologic: Allergic/Immunologic: Reports no additional allergic/immunologic complaints [facility] Past Medical History Medical History (Updated 01/07/25 @ 17:29 by Radha Medina APRN) Hypertension Arthritis Surgical History Surgical History (Updated 04/14/24 @ 09:15 by Yessenia Pope CMA) History of ankle surgery Family History Family History Other Lymphoma Social History Social History Smoking status: Never smoker Alcohol intake: current Drinks per week: 50 Substance use: never Lack of Transportation: No Lack of Food: Never True Current Housing: I Have Housing Concerned About Future Housing: No Difficulty Paying Gas/Electric Bills: No Difficulty Paying for Meds: No Currently Unemployed: No Education: High School Diploma/GED Difficulty w/ Childcare or Family Care: No Living arrangements: with family Additional living arrangements comments: [facility]SE Occupation/Education: occupation 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 [employer] Spiritual care concerns: No Meds Home Medications and Allergies Home Medications ?Medication ?Instructions ?Recorded ?Confirmed ?Type celecoxib 200 mg capsule (Celebrex) 200 mg PO DAILY 04/14/24 01/07/25 History omeprazole 20 mg capsule,delayed 20 mg PO DAILY 04/14/24 01/07/25 History release amlodipine 5 mg tablet 5 mg PO QAM 04/17/24 01/07/25 History ascorbic acid (vitamin C) 1,000 mg 1 g PO DAILY 04/17/24 01/07/25 History capsule cyanocobalamin (vitamin B-12) 500 500 mcg PO DAILY 04/17/24 01/07/25 History mcg tablet multivitamin (Daily Multi-Vitamin 1 tablet PO DAILY 04/17/24 01/07/25 History tablet) Allergies Allergy/AdvReac Type Severity Reaction Status Date / Time No Known Allergies Allergy Verified 01/07/25 17:14 Vital Signs Vital Signs - 24 hr 01/07/25 11:40 01/07/25 11:45 01/07/25 12:38 Temperature 36.6 C Pulse Rate 89 85 Pulse Rate [Monitor] Respiratory Rate 20 20 Blood Pressure 185/100 H 181/87 H Pulse Oximetry 100 100 100 Oxygen Delivery Room Air Room Air 01/07/25 12:39 01/07/25 12:45 01/07/25 12:46 Temperature Pulse Rate 83 82 83 Pulse Rate [Monitor] Respiratory Rate 23 H 16 19 Blood Pressure 179/104 H Pulse Oximetry 100 100 100 Oxygen Delivery 01/07/25 13:00 01/07/25 13:13 01/07/25 13:15 Temperature Pulse Rate 85 83 87 Pulse Rate [Monitor] Respiratory Rate 13 17 16 Blood Pressure 164/96 H Pulse Oximetry Oxygen Delivery 01/07/25 13:30 01/07/25 13:31 01/07/25 13:45 Temperature Pulse Rate 69 79 75 Pulse Rate [Monitor] Respiratory Rate 12 14 12 Blood Pressure 177/92 H Pulse Oximetry 98 Oxygen Delivery 01/07/25 13:46 01/07/25 14:00 01/07/25 14:01 Temperature Pulse Rate 79 78 86 Pulse Rate [Monitor] Respiratory Rate 12 14 13 Blood Pressure 161/93 H 180/95 H Pulse Oximetry 99 Oxygen Delivery 01/07/25 14:30 01/07/25 14:54 01/07/25 15:00 Temperature Pulse Rate 80 71 74 Pulse Rate [Monitor] Respiratory Rate 15 16 17 Blood Pressure Pulse Oximetry Oxygen Delivery 01/07/25 15:01 01/07/25 15:02 01/07/25 15:15 Temperature Pulse Rate 75 78 74 Pulse Rate [Monitor] Respiratory Rate 18 18 15 Blood Pressure 148/87 H Pulse Oximetry 100 Oxygen Delivery 01/07/25 15:16 01/07/25 15:58 01/07/25 17:14 Temperature 36.6 C Pulse Rate 74 67 70 Pulse Rate [Monitor] Respiratory Rate 16 15 18 Blood Pressure 152/85 H 155/87 H Pulse Oximetry 99 98 100 Oxygen Delivery 01/07/25 18:00 01/07/25 18:24 01/07/25 20:00 Temperature 36.6 C Pulse Rate 73 63 Pulse Rate [Monitor] 65 Respiratory Rate 14 Blood Pressure 146/90 H Pulse Oximetry 99 Oxygen Delivery 01/07/25 20:00 01/07/25 20:00 01/07/25 20:00 Temperature Pulse Rate 65 Pulse Rate [Monitor] 63 Respiratory Rate Blood Pressure Pulse Oximetry Oxygen Delivery Room Air 01/07/25 22:00 01/08/25 00:00 01/08/25 00:00 Temperature 36.6 C Pulse Rate 66 72 Pulse Rate [Monitor] 65 Respiratory Rate 17 Blood Pressure 153/92 H Pulse Oximetry 98 Oxygen Delivery 01/08/25 00:00 01/08/25 00:00 01/08/25 02:00 Temperature Pulse Rate 65 62 Pulse Rate [Monitor] Respiratory Rate Blood Pressure Pulse Oximetry Oxygen Delivery Room Air 01/08/25 04:00 01/08/25 04:00 01/08/25 04:00 Temperature 36.5 C Pulse Rate 66 Pulse Rate [Monitor] 67 Respiratory Rate 14 Blood Pressure 155/98 H 161/91 H Pulse Oximetry 99 Oxygen Delivery Room Air 01/08/25 04:00 01/08/25 06:00 01/08/25 07:42 Temperature 36.6 C Pulse Rate 82 61 62 Pulse Rate [Monitor] Respiratory Rate 16 Blood Pressure 147/96 H Pulse Oximetry 96 Oxygen Delivery 01/08/25 08:00 01/08/25 08:00 01/08/25 08:00 Temperature Pulse Rate 68 Pulse Rate [Monitor] 68 Respiratory Rate Blood Pressure Pulse Oximetry Oxygen Delivery Room Air 01/08/25 08:04 Temperature Pulse Rate 67 Pulse Rate [Monitor] Respiratory Rate Blood Pressure Pulse Oximetry Oxygen Delivery Exam Const: General: comfortable and no acute distress Other: Very pleasant overweight gentleman no apparent distress HENMT: Mouth: Yes moist mucous membranes Eyes: Sclera: sclerae normal Neck: Neck: supple and no JVD Other: Carotid pulses intact bilaterally and no bruits are audible Resp: Effort & Inspection: normal respiratory effort Auscultation: clear to auscultation bilaterally Cardio: Rate: regular rate Rhythm: regular rhythm Other: PMI difficult palpate no murmur no gallop GI: GI Palp: Yes Soft to palpation Auscultation: normal bowel sounds Skin: General skin exam: normal color Neuro: Other: Alert and oriented x3 Extrem: Other: No edema, good distal perfusion Results Labs and Meds 01/08/25 04:21 01/08/25 04:21 Lab results: Cardiac Enzymes 01/07/25 01/07/25 01/07/25 Range/Units 11:39 14:52 17:26 AST 38 (17-59) U/L Troponin I < 0.012 0.203 H* D 0.695 H* D (0.000-0.034) ng/mL 01/08/25 Range/Units 04:21 AST (17-59) U/L Troponin I 1.610 H* (0.000-0.034) ng/mL Coagulation 01/07/25 01/07/25 01/07/25 Range/Units 11:39 17:26 22:10 PT 13.7 14.2 (11.1-14.7) Seconds APTT 24.5 45.9 H 39.7 H (22.3-36.8) Seconds 01/08/25 Range/Units 04:21 PT (11.1-14.7) Seconds APTT 71.5 H (22.3-36.8) Seconds Lipids 01/08/25 Range/Units 04:21 Triglycerides 58 (<150) mg/dL Cholesterol 235 H (0-200) mg/dL CBC 01/07/25 01/07/25 01/08/25 Range/Units 11:39 17:26 04:21 WBC 10.0 10.0 7.4 (4.5-10.0) K/mm3 RBC 5.08 4.57 L 4.85 (4.6-6.20) M/mm3 Hgb 16.1 14.6 15.3 (14.0-18.0) g/dL Hct 47.0 42.5 45.0 (42.0-52.0) % Plt Count 247 198 196 (150-375) k/mm3 Lymph # (Auto) 2.29 0.97 1.20 (0.9-3.2) K/mm3 [place] # (Auto) 0.8 H 0.7 H 0.6 (0.1-0.6) K/mm3 Eos # (Auto) 0.0 0.0 0.0 (0-0.3) K/mm3 Baso # (Auto) 0.0 0.0 0.0 (0.0-0.1) K/mm3 Comprehensive Metabolic Panel 01/07/25 01/08/25 Range/Units 11:39 04:21 Sodium 137 133 L (137-145) mmol/L Potassium 3.7 4.2 (3.4-5.0) mmol/L Chloride 103 102 (98-107) mmol/L Carbon Dioxide 24 28 (22-30) mmol/L BUN 21 H 15 D (9-20) mg/dL Creatinine 1.03 0.74 (0.7-1.3) mg/dL Glucose 113 H 116 H (65-110) mg/dL Calcium 9.8 9.1 (8.4-10.2) mg/dL AST 38 (17-59) U/L ALT 34 (6-50) U/L Alkaline Phosphatase 68 (38-126) U/L Total Protein 8.2 (6.3-8.2) g/dL Albumin 4.7 (3.5-5.1) g/dL Intake and Output 01/07/25 01/08/25 01/08/25 23:59 07:59 15:59 Intake Total 66 684 Output Total 790 Balance 66 -106 Intake: IV 66 84 Heparin Sod/D5w 100 Units/ml 25 84 ,000 units In 250 ml @ 1,400 UNITS/HR 14 mls/hr IV CONT . [id number] [facility] Rx#:[id number] Oral 600 Output: Urine 790 Other: Number of Bowel Movements Today 1 Patient Weight 01/08/25 23:59 Weight 113.7 kg
[2025-01-08 10:42] LABS: Partial Thromboplastin Time 57.7 Seconds (22.3-36.8)
[2025-01-08] MEDS: HEPARIN SOD/D5W 100 UNITS/ML 25,000 UNITS/250 ML BAG 16 UNITS IV CONT (10:59)
--- NOTE | 2025-01-08 13:07 | PC.NURSE ---
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
--- NOTE | 2025-01-08 13:44 | PC.NURSE ---
[facility] called with update, teagan will not be here to do cath until after 173 today, pt and notified, pt is unhappy with the delay but agreeable
--- NOTE | 2025-01-08 17:27 | WPDHPUPDATE1 ---
History and Physical Update Update Date/Time: 01/08/25 17:27 History and Physical has been reviewed, including an updated exam of the patient. There are NO changes in the patient's condition. Risks, benefits, and alternatives have been discussed and questions answered. Patient agrees to proceed with procedure.
--- NOTE | 2025-01-08 17:28 | WPDMODSED ---
Moderate Sedation Note-Pt Data Patient Data Allergies Allergy/AdvReac Type Severity Reaction Status Date / Time No Known Allergies Allergy Verified 01/07/25 17:14 Home Medications ?Medication ?Instructions ?Recorded ?Confirmed ?Type celecoxib 200 mg capsule (Celebrex) 200 mg PO DAILY 04/14/24 01/07/25 History omeprazole 20 mg capsule,delayed 20 mg PO DAILY 04/14/24 01/07/25 History release amlodipine 5 mg tablet 5 mg PO QAM 04/17/24 01/07/25 History ascorbic acid (vitamin C) 1,000 mg 1 g PO DAILY 04/17/24 01/07/25 History capsule cyanocobalamin (vitamin B-12) 500 500 mcg PO DAILY 04/17/24 01/07/25 History mcg tablet multivitamin (Daily Multi-Vitamin 1 tablet PO DAILY 04/17/24 01/07/25 History tablet) Current Medications: Active Medications Acetaminophen (Acetaminophen 325 Mg Tablet) 650 mg PO Q4H PRN PRN Reason: Mild Pain (1-3) or Fever Amlodipine Besylate (A[facility]odipine Besylate 5 Mg Tablet) [facility] [place] Admin: 01/08/25 08:05 Dose: 5 mg Aspirin (Aspirin 81 Mg Enteric Tablet) [facility] [place] Admin: 01/08/25 09:47 Dose: 81 mg Atorvastatin Calcium (Atorvastatin 40 Mg Tablet) 80 mg PO [facility] Celecoxib (Celecoxib 200 Mg Capsule) 200 mg PO DAILY [facility] [place] Last Admin: 01/08/25 08:05 Dose: 200 mg Folic Acid (Folic Acid 1 Mg Tablet) 1 mg PO DAILY [facility] [place] Last Admin: 01/08/25 08:05 Dose: 1 mg Heparin Sodium (Porcine) (Heparin Sodium 5,000 Units/Ml Vial) 4,000 units IV PUSH PRN PRN PRN Reason: aPTT less than 55 seconds Last Admin: 01/07/25 22:40 Dose: 4,000 units Heparin Sodium (Porcine) (Heparin Sodium 5,000 Units/Ml Vial) 4,000 units IV PUSH PRN PRN PRN Reason: aPTT 55 - 70 seconds Last Admin: 01/08/25 10:58 Dose: 4,000 units Heparin Sodium/Dextrose (Heparin Sodium/D5w 100 Units/Ml) 25,000 units in 250 mls @ 16 mls/hr IV CONT .[id number] [facility] [place]; Protocol Last Admin: 01/08/25 10:59 Dose: 1,600 units/hr, 16 mls/hr Lorazepam (Lorazepam (*Crx) 1 Mg Tablet) 2 mg PO Q4HR PRN PRN Reason: Alcohol Withdrawal Last Admin: 01/08/25 08:05 Dose: 2 mg Metoprolol Tartrate (Metoprolol Tartrate 25 Mg Tablet) 25 mg PO Q12HR [facility] [place] Multivitamins/Calcium (Therapeutic Multivitamins/Minerals Tab (*Bkc)) 1 tablet PO DAILY [facility] [place] Last Admin: 01/08/25 08:04 Dose: 1 tablet Nitroglycerin (Nitroglycerin Sl 0.4 Mg Tablet) 0.4 mg SUBLINGUAL Q5MIN PRN PRN Reason: Chest Pain Pantoprazole Sodium (Pantoprazole 40 Mg Tablet) 40 mg PO QAM [facility] [place] Last Admin: 01/08/25 08:05 Dose: 40 mg Sedation/Anesthesia: No previous sedation/anesthesia problems (including family history). [facility] Past Medical History Medical History (Updated 01/07/25 @ 17:29 by Radha Medina APRN) Hypertension Arthritis Surgical History Surgical History (Updated 04/14/24 @ 09:15 by Yessenia Pope CMA) History of ankle surgery Family History Family History Other Lymphoma Social History Social History Smoking status: Never smoker Alcohol intake: current Drinks per week: 50 Substance use: never Lack of Transportation: No Lack of Food: Never True Current Housing: I Have Housing Concerned About Future Housing: No Difficulty Paying Gas/Electric Bills: No Difficulty Paying for Meds: No Currently Unemployed: No Education: High School Diploma/GED Difficulty w/ Childcare or Family Care: No Living arrangements: with family Additional living arrangements comments: [place]SE Occupation/Education: occupation 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 Spiritual care concerns: No Mod Sed Physical Exam Physical Exam Pre Procedural Exam: Normal: Lungs, Heart Size, Heart Rate and Heart Rhythm Hours since solid foods: 12 Hours since liquid intake: 12 Mallampati Classification: class II Internal Medicine - PN: Obj Da Vital Signs Vital Signs: Vital Signs - 24 hr 01/07/25 18:00 01/07/25 18:24 01/07/25 20:00 Temperature 36.6 C Pulse Rate 73 63 Pulse Rate [Monitor] 65 Respiratory Rate 14 Blood Pressure 146/90 H Pulse Oximetry 99 Oxygen Delivery 01/07/25 20:00 01/07/25 20:00 01/07/25 20:00 Temperature Pulse Rate 65 Pulse Rate [Monitor] 63 Respiratory Rate Blood Pressure Pulse Oximetry Oxygen Delivery Room Air 01/07/25 22:00 01/08/25 00:00 01/08/25 00:00 Temperature 36.6 C Pulse Rate 66 72 Pulse Rate [Monitor] 65 Respiratory Rate 17 Blood Pressure 153/92 H Pulse Oximetry 98 Oxygen Delivery 01/08/25 00:00 01/08/25 00:00 01/08/25 02:00 Temperature Pulse Rate 65 62 Pulse Rate [Monitor] Respiratory Rate Blood Pressure Pulse Oximetry Oxygen Delivery Room Air 01/08/25 04:00 01/08/25 04:00 01/08/25 04:00 Temperature 36.5 C Pulse Rate 66 Pulse Rate [Monitor] 67 Respiratory Rate 14 Blood Pressure 155/98 H 161/91 H Pulse Oximetry 99 Oxygen Delivery Room Air 01/08/25 04:00 01/08/25 06:00 01/08/25 07:42 Temperature 36.6 C Pulse Rate 82 61 62 Pulse Rate [Monitor] Respiratory Rate 16 Blood Pressure 147/96 H Pulse Oximetry 96 Oxygen Delivery 01/08/25 08:00 01/08/25 08:00 01/08/25 08:00 Temperature Pulse Rate 68 Pulse Rate [Monitor] 68 Respiratory Rate Blood Pressure Pulse Oximetry Oxygen Delivery Room Air 01/08/25 08:04 01/08/25 10:00 01/08/25 12:00 Temperature Pulse Rate 67 64 Pulse Rate [Monitor] 60 Respiratory Rate Blood Pressure Pulse Oximetry Oxygen Delivery 01/08/25 12:00 01/08/25 12:00 01/08/25 12:00 Temperature 36.5 C Pulse Rate 60 66 Pulse Rate [Monitor] Respiratory Rate 16 Blood Pressure 146/91 H Pulse Oximetry 97 Oxygen Delivery Room Air 01/08/25 14:00 01/08/25 16:00 01/08/25 16:00 Temperature Pulse Rate 64 Pulse Rate [Monitor] 62 Respiratory Rate Blood Pressure Pulse Oximetry Oxygen Delivery Room Air 01/08/25 16:00 01/08/25 16:00 Temperature 36.6 C Pulse Rate 63 63 Pulse Rate [Monitor] Respiratory Rate 16 Blood Pressure 137/97 H Pulse Oximetry 96 Oxygen Delivery Intake/Output Intake/Output: Intake & Output 01/05/25 01/06/25 01/07/25 01/08/25 23:59 23:59 23:59 23:59 Intake Total 66 772.4 Output Total 790 Balance 66 -17.6 Meds/Results Medications: Active Medications Generic Name Dose Route Start Last Admin Trade Name Freq PRN Reason Stop Dose Admin Acetaminophen 650 mg 01/07/25 17:30 Acetaminophen 325 Mg Tablet PO Q4H PRN Mild Pain (1-3) or Fever Amlodipine Besylate 5 mg 01/08/25 09:00 01/08/25 08:05 Amlodipine Besylate 5 Mg Tablet PO 5 mg QAM GUILLAUME Administration Aspirin 81 mg 01/08/25 09:15 01/08/25 09:47 Aspirin 81 Mg Enteric Tablet PO 81 mg QAM GUILLAUME Administration Atorvastatin Calcium 80 mg 01/08/25 21:00 Atorvastatin 40 Mg Tablet PO HS GUILLAUME Celecoxib 200 mg 01/08/25 09:00 01/08/25 08:05 Celecoxib 200 Mg Capsule PO 200 mg DAILY GUILLAUME Administration Folic Acid 1 mg 01/08/25 09:00 01/08/25 08:05 Folic Acid 1 Mg Tablet PO 1 mg DAILY GUILLAUME Administration Heparin Sodium (Porcine) 4,000 units 01/07/25 15:29 01/07/25 22:40 Heparin Sodium 5,000 Units/Ml Vial IV PUSH 4,000 units PRN PRN Administration aPTT less than 55 seconds Heparin Sodium (Porcine) 4,000 units 01/07/25 15:29 01/08/25 10:58 Heparin Sodium 5,000 Units/Ml Vial IV PUSH 4,000 units PRN PRN Administration aPTT 55 - 70 seconds Heparin Sodium/Dextrose 25,000 units in 250 mls @ 16 mls/hr 01/07/25 15:30 01/08/25 10:59 Heparin Sodium/D5w 100 Units/Ml IV CONT 1,600 units/hr .[id number] GUILLAUME 16 mls/hr Protocol Administration 1,600 UNITS/HR Lorazepam 2 mg 01/07/25 18:24 01/08/25 08:05 Lorazepam (*Crx) 1 Mg Tablet PO 2 mg Q4HR PRN Administration Alcohol Withdrawal Metoprolol Tartrate 25 mg 01/08/25 21:00 Metoprolol Tartrate 25 Mg Tablet PO Q12HR [facility] [place] Multivitamins/Calcium 1 tablet 01/08/25 09:00 01/08/25 08:04 Therapeutic Multivitamins/Minerals Tab (*Bkc) PO 1 tablet DAILY GUILLAUME Administration Nitroglycerin 0.4 mg 01/08/25 05:46 Nitroglycerin Sl 0.4 Mg Tablet SUBLINGUAL Q5MIN PRN Chest Pain Pantoprazole Sodium 40 mg 01/08/25 09:00 01/08/25 08:05 Pantoprazole 40 Mg Tablet PO 40 mg QAM GUILLAUME Administration Radiology Results: ITS Impressions Chest X-Ray 01/07/25 12:07 IMPRESSION: Probable strandy atelectasis on the frontal view. No definite infiltrate or air space disease seen on the lateral. Clinically correlate. Chest/Abdomen/Pelvis CTA 01/07/25 12:34 IMPRESSION: 1. No acute process is identified. No dissection or aneurysm Labs 01/08/25 04:21 01/08/25 04:21 Labs: Laboratory Results - last 24 hr 01/07/25 01/07/25 01/08/25 17:26 22:10 04:21 WBC 10.0 7.4 RBC 4.57 L 4.85 Hgb 14.6 15.3 Hct 42.5 45.0 MCV 93.0 92.8 MCH 31.9 31.5 MCHC 34.4 34.0 RDW 12.1 12.1 Plt Count 198 196 MPV 8.7 9.0 Immature Gran % (Auto) 0.2 0.3 Neut % (Auto) 82.7 H 75.4 H Lymph % (Auto) 9.7 L 16.2 L [place] % (Auto) 7.1 7.4 Eos % (Auto) 0.0 0.3 Baso % (Auto) 0.3 0.4 Lymph # (Auto) 0.97 1.20 [place] # (Auto) 0.7 H 0.6 Eos # (Auto) 0.0 0.0 Baso # (Auto) 0.0 0.0 Abs Immat Gran (auto) 0.02 0.02 Absolute Neuts (auto) 8.3 H 5.6 Absolute Nucleated RBC 0.000 0.000 Nucleated RBC % 0.0 0.0 PT 14.2 INR 1.1 APTT 45.9 H 39.7 H 71.5 H Sodium 133 L Potassium 4.2 Chloride 102 Carbon Dioxide 28 Anion Gap 3 L BUN 15 D Creatinine 0.74 Estim Creat Clear Calc 126 Estimated GFR > 60 Glucose 116 H Calcium 9.1 Troponin I 0.695 H* D 1.610 H* Triglycerides 58 Cholesterol 235 H LDL Cholesterol Direct 118 HDL Direct 84 01/08/25 10:26 WBC RBC Hgb Hct MCV MCH MCHC RDW Plt Count MPV Immature Gran % (Auto) Neut % (Auto) Lymph % (Auto) [place] % (Auto) Eos % (Auto) Baso % (Auto) Lymph # (Auto) [place] # (Auto) Eos # (Auto) Baso # (Auto) Abs Immat Gran (auto) Absolute Neuts (auto) Absolute Nucleated RBC Nucleated RBC % PT INR APTT 57.7 H Sodium Potassium Chloride Carbon Dioxide Anion Gap BUN Creatinine Estim Creat Clear Calc Estimated GFR Glucose Calcium Troponin I Triglycerides Cholesterol LDL Cholesterol Direct HDL Direct ASA Classification/Sedation ASA Classification/Sedation ASA Class: III Emergent: No Risks: Risks, benefits and alternatives explained and patient/family accepted plan for sedation. Patient re-evaluated immediately prior to sedation.
--- NOTE | 2025-01-08 17:28 | WPDCARDPROC ---
Cardiac Cath Procedure Note Date of procedure:: 01/08/25 Performing physician:: Ludy Youngblood MD Indication:: CATHETERIZATION LABORATORY REPORT Procedure Date: Referring Physician: Anesthesia: Versed and Fentanyl were ordered and given in my presence at 8:01 p.m., procedure ended at 8:55 p.m.. Supervision of nurse monitored moderate sedation with Versed and Fentanyl was provided for 54 minutes. Fentanyl 150 mcg Versed 1.5 mg Pre-op Diagnosis: NSTEMI Hypertension Post-op Diagnosis: NSTEMI status post successful IVUS guided PCI to 80% stenosis of mid LAD with 3.5 mm X 26 mm Medtronic caden ROMA post dilated with 4.0 mm X 15 mm noncompliant balloon to high pressures. Hypertension-poorly controlled with SBP in the 80s to 190s range in the catheterization laboratory technician. Procedure(s): Ultrasound-guided right common femoral artery access Left heart catheterization with coronary angiography IVUS guided PCI to mid LAD Access Site: Right common femoral artery Brief History and Clinical Indications: All risks, benefits and alternatives to left heart catheterization with or without percutaneous coronary intervention was discussed at length with the patient. Risk of complications including but not limited to bleeding, infection, arrhythmia, stroke, worsening kidney function, blood loss, groin hematoma, limb loss, emergency coronary artery bypass grafting, and even were discussed with the patient and all questions were answered. The patient understood and wished to proceed. Time out called, patient name, date of , medical record number, allergies, procedure performed, identify Rf Test Engineer, patient and staff member concurred with accurate data, procedure carried on. Findings: LEFT HEART CATHETERIZATION FINDINGS: 1. Left main: The left main coronary artery is widely patent without any significant obstructive disease. 2. Left anterior descending: The mid LAD has 80% stenosis and this is the culprit for patient's presentation. The diagonal branches are widely patent without any significant obstructive angiographic disease. 3. Left circumflex: The left circumflex artery and the main marginal branches are widely patent without any significant obstructive angiographic disease. 4. Right coronary artery: The RCA is widely patent without any significant obstructive angiographic disease. The RPDA and RPLA are widely patent without any significant obstructive angiographic disease. The RCA is the dominant vessel. 5. Left ventricle: A. End-diastolic pressure 13 mmHg. B. LV gram deferred. C. No significant gradient across aortic valve on catheter pullback. 6. Opening AO pressure 166/114/136 mm Hg and closing AO pressure 131/79/10 4 mm Hg Description of Procedure: Informed consent signed and placed in the chart. Patient transferred to catheterization laboratory technician room. Prepped and draped in usual sterile fashion. 2% lidocaine in right groin area. Micropuncture needle used to access right common femoral artery with Seldinger technique under fluoroscopic guidance. J wire advanced, micropuncture cannula placed. Right iliofemoral angiogram performed, access confirmed and micropuncture cannula exchanged for 6-FR sheath. ? 5 Japanese JL 5 diagnostic catheter engaged Left Main Coronary Artery. 5 Japanese JR4 diagnostic catheter engaged Right Coronary Artery. Multiple orthogonal angiogram obtained and reviewed Five Japanese JR4 diagnostic catheter crossed aortic valve to obtain LVEDP, LV angiogram deferred. Hemostasis was achieved by 6 Japanese Angio-Seal. Procedure Description for PCI: Heparin was used for anticoagulation (ACT maintained above 250) Patient loaded with heparin at 70 units/kg. 6 Japanese EBU 5 guide catheter was used to intubate the left main coronary artery. 0.014 runthrough coronary wire was passed in to the distal LAD. The lesion was pre-dilated with a 3.0 mm X 15 mm compliant balloon inflated to high ANDREW. A [employer] [place] IVUS catheter was advanced into the mid LAD and pullback performed to obtain lesion characteristics and vessel size. A the 0.5 mm X 26 mm Medtronic caden [place] ROMA was successfully deployed into mid LAD. IVUS catheter was readvanced into the LAD to evaluate stent. Stent appeared well apposed a slightly undersized. The stent was post-dilated with a 4.0 mm X 15 mm NC balloon inflated to high ANDREW. Intracoronary NTG was administered. Follow-up angiograms showed an excellent result. Coronary wire and guide-catheter were removed. Pre-procedure - CAMERON 3 flow Post-procedure - CMAERON 3 flow No angiographic complications identified. Assessment: NSTEMI status post successful IVUS guided PCI to 80% stenosis of mid LAD with 3.5 mm X 26 mm Medtronic caden ROMA post dilated with 4.0 mm X 15 mm noncompliant balloon to high pressures. Hypertension-poorly controlled with SBP in the 80s to 190s range in the catheterization laboratory technician. Post Operative Condition: Stable No significant blood loss Disposition: Floor/Home Plan: The patient will be monitored in the recovery area. Ticagrelor 180 mg p.o. loaded in the catheterization laboratory technician. Continue DAPT for 1 year with aspirin 81 mg p.o. daily and ticagrelor 90 mg p.o. b.i.d. followed by ASA indefinitely. Continue Atorvastatin 80 mg daily and metoprolol 25 mg p.o. b.i.d. TTE. Sublingual nitroglycerin 0.3 mg Q 5 minutes X 3 p.r.n. for chest pain. Bedrest for 2 hours. Normal saline 100 cc/hour for 250 mL. Continue aggressive medical therapy and risk factor modification. Blood pressure control with target less than 120/80 mm Hg. Continue metoprolol 25 mg p.o. b.i.d.. Increase amlodipine to 10 mg daily.
[2025-01-08 17:30] LABS: Partial Thromboplastin Time 124.8 Seconds (22.3-36.8)
--- NOTE | 2025-01-08 18:17 | PC.NURSE ---
pt upset that it is taking so long to get cardiac cath done, pt reassured that they are working on getting him down as quickly as possible, spoke with [facility] and they have no definite time and will let us know if teagan decides to wait until tomorrow
--- NOTE | 2025-01-08 19:10 | PC.NURSE ---
pt and are upset that he is still waiting for card cath, house medina cowan has come to speak with them
--- NOTE | 2025-01-08 20:54 | ECG_ITS ---
Test Date: 2025-01-08 20:58:34 Measurements Intervals [place] Rate: 78 P: 47 WI: 192 QRS: 4 QRSD: 137 T: 99 QT: 495 QTc: 566 Interpretive Statements SINUS RHYTHM INCOMPLETE RIGHT BUNDLE BRANCH BLOCK ST/T-WAVE ABNORMALITY CONSISTENT WITH ANTERIOR ISCHEMIA /NON ST ELEVATION ID ABNORMAL ECG Compared to ECG 01/08/2025 04:17:07 PRECORDIAL T-WAVE ABNORMALITY HAS WORSENED Electronically Signed On 01-09-2025 08:08:35 QUALITY ENGINEER by Ez Diaz M.D.
--- NOTE | 2025-01-08 21:28 | PC.NURSE ---
Report Given from Jerri MELVIN from Parking Manager, Right groin intact, no bleeding or hematoma
[2025-01-08] MEDS: ATORVASTATIN 40 MG TABLET 80 MG PO (21:57)
[2025-01-08] MEDS: METOPROLOL TARTRATE 25 MG TABLET PO (21:59)
[2025-01-08] MEDS: SODIUM CHLORIDE 0.9% IV 500 ML 125 ML IV CONT (23:13)
[2025-01-09] VITALS (11 sets, daily range): BP systolic 137–157; BP diastolic 87–96; PULSE 61–91; RESP 12–20; TEMP 36.8–36.9; O2SAT 97–99
--- NOTE | 2025-01-09 | ECHO_ITS ---
Patient Info Name: Neno Flores Age: 59 years : 1965 Gender: Male Ht: 75 in Wt: 250 lbs BSA: 2.48 m2 HR: 64 bpm Heart Rhythm: Sinus Rhythm Technical Quality: Good Exam Date: 01/09/2025 10:01 AM Patient Status: unknown Admit Date: 01/07/2025 Exam Type: CA echo dop color flow w con Complete two-dimensional, color flow and Doppler transthoracic echocardiogram is performed with contrast to opacify the left ventricle and to improve the deliniation of the left ventricle endocardial borders. Staff Referring Physician: Meg Baxter Decal Cutter: Meli Carrasco Attending Provider: Jose Carlos Hernandez Contrast/Agitated Saline Contrast/Ag. Saline: Definity Amount: 2.00 ml Summary 1. Normal left ventricular size with hypokinesia of the mid to apical anterior wall and apex. Global ejection fraction 45-50%. 2. No valvular abnormality. Left Ventricle Left ventricular chamber dimension is normal. Left ventricular systolic function is mildly reduced, estimated at 45-50. The left ventricular diastolic function is grade I diastolic dysfunction. Right Ventricle Right ventricular chamber dimension is normal. Left Atria Left atrial chamber dimension is normal. Right Atria Right atrial chamber dimension is normal. Aortic Valve The aortic valve is normal. Pulmonic Valve The pulmonic valve is not well visualized. Mitral Valve The mitral valve has normal leaflets. Tricuspid Valve The tricuspid valve leaflets are normal. Pericardium/Pleural The pericardium appears normal. Aorta The aortic root size at the sinus of Valsalva is normal. Left Ventricular Outflow Tract Name Value Normal LVOT 2D LVOT Diameter 2.6 cm LVOT Doppler LVOT Peak Velocity 117 cm/s LVOT Peak Gradient 5 mmHg LVOT Mean Gradient 3 mmHg LVOT VTI 24 cm LVOT Stroke Volume 132 ml LVOT CO 8.5 l/min LVOT CI 3.4 l/min/m2 Pulmonic Valve Name Value Normal RVOT Doppler RVOT Peak Velocity 78 cm/s RVOT Peak Gradient 2 mmHg PV Doppler PV Peak Velocity 111 cm/s PV Peak Gradient 5 mmHg Mitral Valve Name Value Normal MV Diastolic Function MV E Peak Velocity 77 cm/s MV A Peak Velocity 90 cm/s MV E/A 0.8 MV Decel Time (PW) 199 ms MV Annular TDI MV E/e' (Septal) 11.8 MV E/e' (Lateral) 16.1 MV E/e' (Average) 14.0 Aortic Valve Name Value Normal AV Doppler AV Peak Velocity 147 cm/s AV Peak Gradient 9 mmHg AV Area (Cont Eq [place]) 4.3 cm2 AV DI ([place]) 0.79 AV Regurgitation 2D LVOT Area 5.5 cm2 Ventricles Name Value Normal LV Dimensions 2D/MM IVS Diastolic Thickness (2D) 1.6 cm 0.6-1.0 LVID Diastole (2D) 5.0 cm 4.2-5.8 LVIW Diastolic Thickness (2D) 1.1 cm 0.6-1.0 LVID Systole (2D) 3.4 cm 2.5-4.0 LVOT Diameter 2.6 cm LV Mass (2D Cubed) 281.01 g 88.00-224.00 LV Mass Index (2D Cubed) 114 g/m2 49-115 Relative Wall Thickness (2D) 0.45 <=0.42 LV Fractional Shortening/Ejection Fraction 2D/MM LV Fractional Shortening (2D) 32 % 25-43 LV EF (2D Teichholz) 59 % LV Diastolic Volume (4C MOD) 211 ml LV EF (4C MOD) 60 % LV Diastolic Volume (2C MOD) 156 ml LV EF (2C MOD) 46 % LV Diastolic Volume (BP MOD) 181 ml 62-150 LV Diastolic Volume Index (BP MOD) 73 ml/m2 34-74 LV Systolic Volume (BP MOD) 86 ml 21-61 LV Systolic Volume Index (BP MOD) 35 ml/m2 11-31 LV EF (BP MOD) 52 % 52-72 LV Diastolic Length (4C) 9.4 cm LV Systolic Length (4C) 8.1 cm LV Stroke Volume (4C MOD) 127 ml Atria Name Value Normal LA Dimensions LA Volume (4C A-L) 68 ml LA Volume (BP A-L) 68 ml RA Dimensions RA Systolic Major [place] Length (4C) 6.1 cm 2.1-2.7 RA Area (4C) 17.5 cm2 <=18.0 Report Signatures
[2025-01-09 03:58] LABS: Hematocrit 42.1 % (42.0-52.0); Hemoglobin 14.5 g/dL (14.0-18.0); Immature Granulocyte Percent A 0.1 % (0-0.5); Lymphocytes Absolute Auto 0.84 K/mm3 (0.9-3.2); Mean Corpuscular HGB Conc 34.4 g/dl (32-36); Mean Corpuscular Hemoglobin 31.5 pg (26-34); Mean Corpuscular Volume 91.3 fl (80-100); Nucleated Red Blood Cells Absolute Auto 0.000 K/mm3 (0.0-0.012); Nucleated Red Blood Cells Perc 0.0 % (0.0-0.2); Platelet Count Result 171 k/mm3 (150-375); Red Blood Count 4.61 M/mm3 (4.6-6.20); White Blood Count 7.1 K/mm3 (4.5-10.0)
[2025-01-09 04:33] LABS: Alanine Aminotransferase 27 U/L (6-50); Albumin Level 3.8 g/dL (3.5-5.1); Alkaline Phosphatase 54 U/L (38-126); Anion Gap 3 mmol/L (4-12); Aspartate Amino Transferase 48 U/L (17-59); Bilirubin,Total 1.0 mg/dL (0.2-1.3); Blood Urea Nitrogen 12 mg/dL (9-20); Calcium 8.9 mg/dL (8.4-10.2); Carbon Dioxide 24 mmol/L (22-30); Chloride 103 mmol/L (98-107); Estimated CRCL calculation 156 ml/min; Estimated Glomerular Filt Rate > 60; Glucose 106 mg/dL (65-110); Magnesium 1.9 mg/dL (1.6-2.3); Potassium 3.7 mmol/L (3.4-5.0); Sodium 130 mmol/L (137-145); Total Protein 6.5 g/dL (6.3-8.2)
--- NOTE | 2025-01-09 05:00 | PC.NURSE ---
Patient transferred back to room 202. Araseli Alex RN given report. All belongings with patient.
--- NOTE | 2025-01-09 05:29 | PC.NURSE ---
01/09/25 0445 Pt transferred back to IMU room 202.
[2025-01-09] MEDS: ASPIRIN 81 MG ENTERIC TABLET PO (09:27)
[2025-01-09] MEDS: FOLIC ACID 1 MG TABLET PO (09:27)
[2025-01-09] MEDS: CELECOXIB 200 MG CAPSULE PO (09:27)
[2025-01-09] MEDS: TICAGRELOR 90 MG TABLET PO (09:27)
[2025-01-09] MEDS: METOPROLOL TARTRATE 25 MG TABLET PO (09:27)
[2025-01-09] MEDS: THERAPEUTIC MULTIVITAMINS/MINERALS TAB (*BKC) 1 TABLET PO (09:27)
[2025-01-09] MEDS: PANTOPRAZOLE 40 MG TABLET PO (09:28)
--- NOTE | 2025-01-09 11:25 | P.PNCA_ITS ---
Progress Note: A&P Assessment and Plan (1) Acute non-ST elevation myocardial infarction (NSTEMI): Code(s): I21.4 - Non-ST elevation (NSTEMI) myocardial infarction Status: Acute Plan 59-year-old man with newly diagnosed coronary artery disease status post successful percutaneous revascularization with stenting of the LAD yesterday. He is stable for discharge today. I will arrange for timely follow-up in my office in 2-3 weeks. Long conversation with the patient about extreme importance to adherence to medical therapy especially his dual anti-platelet regimen. He understands this well. Ez Diaz MD [facility] Subjective Date/time seen: Date of service: 01/09/25 11:25 Interval history: Follow-up visit in this 59-year-old man with: Presentation with acute coronary syndrome following that which left heart catheterization done yesterday demonstrated significant stenosis in the LAD tr eated successfully with PCI/drug-eluting stent. He is asymptomatic today and feels well and would like to be discharged. Long conversation with the patient about the importance of adherence to medical therapy especially the importance of dual anti-platelet therapy Exam Const: General: comfortable and no acute distress HENMT: Mouth: Yes moist mucous membranes Eyes: Sclera: sclerae normal Neck: Neck: supple and no JVD Resp: Effort & Inspection: normal respiratory effort Auscultation: clear to auscultation bilaterally Cardio: Rate: regular rate Rhythm: regular rhythm Other: No murmur no gallop GI: GI Palp: Yes Soft to palpation Auscultation: normal bowel sounds Skin: General skin exam: normal color Neuro: Other: Alert and oriented Extrem: General: normal to inspection Objective Data Vital Signs Vital Signs: Vital Signs - 24 hr 01/08/25 12:00 01/08/25 12:00 01/08/25 12:00 Temperature Pulse Rate 60 Pulse Rate [Monitor] 60 Pulse Rate [Right Pedal (Dorsalis Pedis) Palpation] Respiratory Rate Blood Pressure Pulse Oximetry Oxygen Delivery Room Air 01/08/25 12:00 01/08/25 14:00 01/08/25 16:00 Temperature 36.5 C Pulse Rate 66 64 Pulse Rate [Monitor] 62 Pulse Rate [Right Pedal (Dorsalis Pedis) Palpation] Respiratory Rate 16 Blood Pressure 146/91 H Pulse Oximetry 97 Oxygen Delivery 01/08/25 16:00 01/08/25 16:00 01/08/25 16:00 Temperature 36.6 C Pulse Rate 63 63 Pulse Rate [Monitor] Pulse Rate [Right Pedal (Dorsalis Pedis) Palpation] Respiratory Rate 16 Blood Pressure 137/97 H Pulse Oximetry 96 Oxygen Delivery Room Air 01/08/25 18:00 01/08/25 21:37 01/08/25 21:41 Temperature Pulse Rate 66 79 Pulse Rate [Monitor] 80 Pulse Rate [Right Pedal (Dorsalis Pedis) Palpation] Respiratory Rate 14 Blood Pressure 162/76 H Pulse Oximetry 96 Oxygen Delivery 01/08/25 21:44 01/08/25 21:45 01/08/25 21:59 Temperature Pulse Rate 80 85 82 Pulse Rate [Monitor] Pulse Rate [Right Pedal (Dorsalis Pedis) Palpation] Respiratory Rate 15 18 Blood Pressure 146/75 H Pulse Oximetry 96 96 Oxygen Delivery Room Air 01/08/25 22:00 01/08/25 22:01 01/08/25 22:16 Temperature Pulse Rate 80 81 84 Pulse Rate [Monitor] Pulse Rate [Right Pedal (Dorsalis Pedis) Palpation] Respiratory Rate 15 16 Blood Pressure 158/85 H 157/84 H Pulse Oximetry 96 97 Oxygen Delivery 01/08/25 22:46 01/08/25 23:00 01/08/25 23:23 Temperature Pulse Rate 74 76 76 Pulse Rate [Monitor] Pulse Rate [Right Pedal (Dorsalis Pedis) Palpation] 76 Respiratory Rate 14 13 16 Blood Pressure 155/80 H 153/93 H Pulse Oximetry 98 98 99 Oxygen Delivery Room Air 01/09/25 00:00 01/09/25 00:00 01/09/25 00:00 Temperature 36.8 C Pulse Rate 74 74 Pulse Rate [Monitor] Pulse Rate [Right Pedal (Dorsalis Pedis) Palpation] 76 Respiratory Rate 17 Blood Pressure 153/93 H 157/92 H Pulse Oximetry 97 Oxygen Delivery 01/09/25 01:00 01/09/25 02:00 01/09/25 03:26 Temperature Pulse Rate 70 68 Pulse Rate [Monitor] Pulse Rate [Right Pedal (Dorsalis Pedis) Palpation] 70 76 Respiratory Rate 12 Blood Pressure 151/87 H 151/87 H Pulse Oximetry 97 Oxygen Delivery 01/09/25 03:28 01/09/25 04:00 01/09/25 04:00 Temperature Pulse Rate 68 73 73 Pulse Rate [Monitor] Pulse Rate [Right Pedal (Dorsalis Pedis) Palpation] Respiratory Rate 12 18 Blood Pressure 152/96 H Pulse Oximetry 97 99 Oxygen Delivery Room Air 01/09/25 06:00 01/09/25 08:00 01/09/25 09:27 Temperature 36.9 C Pulse Rate 73 86 80 Pulse Rate [Monitor] Pulse Rate [Right Pedal (Dorsalis Pedis) Palpation] Respiratory Rate 16 Blood Pressure 137/94 H Pulse Oximetry 99 Oxygen Delivery Intake/Output Intake/Output: Intake & Output 01/06/25 01/07/25 01/08/25 01/09/25 23:59 23:59 23:59 23:59 Intake Total 66 879.9 640 Output Total 790 400 Balance 66 89.9 240 Meds/Results Medications: Active Medications Generic Name Dose Route Start Last Admin Trade Name Freq PRN Reason Stop Dose Admin Acetaminophen 650 mg 01/07/25 17:30 Acetaminophen 325 Mg Tablet PO Q4H PRN Mild Pain (1-3) or Fever Amlodipine Besylate 10 mg 01/09/25 09:00 01/09/25 09:28 Amlodipine Besylate 10 Mg Tablet PO 10 mg QAM GUILLAUME Administration Aspirin 81 mg 01/08/25 09:15 01/09/25 09:27 Aspirin 81 Mg Enteric Tablet PO 81 mg QAM GUILLAUME Administration Atorvastatin Calcium 80 mg 01/08/25 21:00 01/08/25 21:57 Atorvastatin 40 Mg Tablet PO 80 mg HS GUILLAUME Administration Celecoxib 200 mg 01/08/25 09:00 01/09/25 09:27 Celecoxib 200 Mg Capsule PO 200 mg DAILY GUILLAUME Administration Folic Acid 1 mg 01/08/25 09:00 01/09/25 09:27 Folic Acid 1 Mg Tablet PO 1 mg DAILY GUILLAUME Administration Lorazepam 2 mg 01/07/25 18:24 01/08/25 08:05 Lorazepam (*Crx) 1 Mg Tablet PO 2 mg Q4HR PRN Administration Alcohol Withdrawal Metoprolol Succinate 50 mg 01/10/25 09:00 Metoprolol Succinate Ext Rel 50 Mg Tabcr PO QAM GUILLAUME Multivitamins/Calcium 1 tablet 01/08/25 09:00 01/09/25 09:27 Therapeutic Multivitamins/Minerals Tab (*Bkc) PO 1 tablet DAILY GUILLAUME Administration Nitroglycerin 0.4 mg 01/08/25 05:46 Nitroglycerin Sl 0.4 Mg Tablet SUBLINGUAL Q5MIN PRN Chest Pain Pantoprazole Sodium 40 mg 01/08/25 09:00 01/09/25 09:28 Pantoprazole 40 Mg Tablet PO 40 mg QAM GUILLAUME Administration Perflutren Lipid Microsphere 0 ml 01/08/25 21:06 Perflutren Lipid Microspheres 1.5 Ml Vial Diluted To 10 Ml Total Volume IV PUSH 01/11/25 21:06 ONCE PRN adequate visualization Protocol Ticagrelor 90 mg 01/09/25 09:00 01/09/25 09:27 Ticagrelor 90 Mg Tablet PO 90 mg Q12HR GUILLAUME Administration Radiology Results: ITS Impressions Chest X-Ray 01/07/25 12:07 IMPRESSION: Probable strandy atelectasis on the frontal view. No definite infiltrate or air space disease seen on the lateral. Clinically correlate. Chest/Abdomen/Pelvis CTA 01/07/25 12:34 IMPRESSION: 1. No acute process is identified. No dissection or aneurysm Labs Labs: Laboratory Results - last 24 hr 01/08/25 01/09/25 17:14 03:52 WBC 7.1 RBC 4.61 Hgb 14.5 Hct 42.1 MCV 91.3 MCH 31.5 MCHC 34.4 RDW 12.2 Plt Count 171 MPV 8.7 Immature Gran % (Auto) 0.1 Neut % (Auto) 79.6 H Lymph % (Auto) 11.8 L Dewitt % (Auto) 8.1 Eos % (Auto) 0.1 Baso % (Auto) 0.3 Lymph # (Auto) 0.84 L Dewitt # (Auto) 0.6 Eos # (Auto) 0.0 Baso # (Auto) 0.0 Abs Immat Gran (auto) 0.01 Absolute Neuts (auto) 5.7 Absolute Nucleated RBC 0.000 Nucleated RBC % 0.0 APTT 124.8 H Sodium 130 L Potassium 3.7 Chloride 103 Carbon Dioxide 24 Anion Gap 3 L BUN 12 Creatinine 0.59 L Estim Creat Clear Calc 156 Estimated GFR > 60 Glucose 106 Calcium 8.9 Magnesium 1.9 Total Bilirubin 1.0 AST 48 ALT 27 Alkaline Phosphatase 54 Total Protein 6.5 Albumin 3.8
[2025-01-09] MEDS: PERFLUTREN LIPID MICROSPHERES 1.5 ML VIAL DILUTED TO 10 ML TOTAL VOLUME IV PUSH (11:37)
--- NOTE | 2025-01-09 11:37 | IVDEFINITY ---
Prior to administration of IV Definity the patient was educated on the risks and benefits of the imaging enhancing agent including potential adverse side effects. The patient verbalized understanding. Allergies were verified. No exclusion criteria were identified and at least one of the following inclusion criteria were met: 1) physician request, 2) patient technically difficult to image (per the [place] [employer] guidelines of two or more segments not discernable within the apical view), or 3) questionable left ventricular function. ?
--- NOTE | 2025-01-09 11:57 | PM.DS ---
DS: Admitting Diagnosis Discharge Date 01/09/2025 Admitting Diagnosis Chest pain DS: Discharge Diagnosis Discharge Diagnosis (1) Acute non-ST elevation myocardial infarction (NSTEMI): Code(s): I21.4 - Non-ST elevation (NSTEMI) myocardial infarction Status: Acute (2) Hypertension: Code(s): I10 - Essential (primary) hypertension Status: Acute DS: Summary Hospital Course Hospital Course: This is a 59-year-old male who presented with severe chest pain slight nausea and dyspepsia started while driving around 11 on 01/07/2025. He also felt some tingling and pain going down his left arm. History of hypertension and mitral valve prolapse. Vitals with hypertension with blood pressure 185/100 on presentation. His EKG showed normal sinus rhythm with no acute ST-T changes. Laboratory workup revealed WBC of 10 hemoglobin 16.1 platelet count of 247. Sodium 137 potassium 3.7 chloride 103 bicarbonate 24 BUN 21 creatinine 1 blood glucose 113. Initial troponin was negative at less than 0.012 subsequent troponin 0.203-suggestive of non ST elevation [place]. troponin continues to trend up to 0.695-1.610. LDL 118. Chest x-ray no acute findings probable strandy atelectasis. Chest abdomen pelvis CTA showed no acute findings. He received aspirin heparin drip was started. Cardiology was consulted. Acute non ST elevation [place] IV heparin add aspirin 81 mg daily. Metoprolol added. Add Statin. status post left heart catheterisation: status post successful IVUS guided PCI to 80% stenosis of mid LAD with 3.5 mm X 26 mm Medtronic caden ROMA post dilated with 4.0 mm X 15 mm noncompliant balloon to high pressures. on dapt as planned Hypertension increased amlod, on metoprolol GERD DVT prophylaxis on heparin drip. Code status full code Time Spent with Patient Time attestation: Total time spent providing and/or coordinating discharge services: 35 minutes Exam Narrative: General: well appearing, appears stated age. HEENT: normocephalic, atraumatic. Mucous membranes moist. Respiratory: clear bilaterally. No rales/rhonic/wheezes. Cardiovascular: Regular rate and rhythm, normal S1-S2. No murmurs, rubs, or clicks. Abdomen: Soft, round, no pulsatile masses, nondistended and nontender. Extremities: No cyanosis, clubbing, or edema present. Pulses are palpable 2/2. Active ROM to all four extremities. Neuro: Alert and orientated x 4. PERRLA. Cranial nerves 2-12 intact without focal deficit. Skin: Warm, dry, and intact, without rash, erythema, or lesion. Psych: pleasant, cooperative, normal speech, normal affect, no hallucinations, no dysarthia DS: Data Data Completed and Pending Labs on day of discharge: Labs from last 24 hours 01/09/25 01/08/25 03:52 17:14 WBC 7.1 RBC 4.61 Hgb 14.5 Hct 42.1 MCV 91.3 MCH 31.5 MCHC 34.4 RDW 12.2 Plt Count 171 MPV 8.7 Immature Gran % (Auto) 0.1 Neut % (Auto) 79.6 H Lymph % (Auto) 11.8 L [place] % (Auto) 8.1 Eos % (Auto) 0.1 Baso % (Auto) 0.3 Lymph # (Auto) 0.84 L [place] # (Auto) 0.6 Eos # (Auto) 0.0 Baso # (Auto) 0.0 Abs Immat Gran (auto) 0.01 Absolute Neuts (auto) 5.7 Absolute Nucleated RBC 0.000 Nucleated RBC % 0.0 APTT 124.8 H Sodium 130 L Potassium 3.7 Chloride 103 Carbon Dioxide 24 Anion Gap 3 L BUN 12 Creatinine 0.59 L Estim Creat Clear Calc 156 Estimated GFR > 60 Glucose 106 Calcium 8.9 Magnesium 1.9 Total Bilirubin 1.0 AST 48 ALT 27 Alkaline Phosphatase 54 Total Protein 6.5 Albumin 3.8 Procedures/Treatments: Cardiac Cath Procedure Note Date of procedure:: 01/08/25 Performing physician:: Ludy Youngblood MD Indication:: CATHETERIZATION LABORATORY REPORT Procedure Date: Referring Physician: Anesthesia: Versed and Fentanyl were ordered and given in my presence at 8:01 p.m., procedure ended at 8:55 p.m.. Supervision of nurse monitored moderate sedation with Versed and Fentanyl was provided for 54 minutes. Fentanyl 150 mcg Versed 1.5 mg Pre-op Diagnosis: NSTEMI Hypertension Post-op Diagnosis: NSTEMI status post successful IVUS guided PCI to 80% stenosis of mid LAD with 3.5 mm X 26 mm Medtronic caden ROMA post dilated with 4.0 mm X 15 mm noncompliant balloon to high pressures. Hypertension-poorly controlled with SBP in the 80s to 190s range in the laboratory mechanic helper. Procedure(s): Ultrasound-guided right common femoral artery access Left heart catheterization with coronary angiography IVUS guided PCI to mid LAD Access Site: Right common femoral artery Brief History and Clinical Indications: All risks, benefits and alternatives to left heart catheterization with or without percutaneous coronary intervention was discussed at length with the patient. Risk of complications including but not limited to bleeding, infection, arrhythmia, stroke, worsening kidney function, blood loss, groin hematoma, limb loss, emergency coronary artery bypass grafting, and even were discussed with the patient and all questions were answered. The patient understood and wished to proceed. Time out called, patient name, date of , medical record number, allergies, procedure performed, identify Regional Retail Sales Manager, patient and staff member concurred with accurate data, procedure carried on. Findings: LEFT HEART CATHETERIZATION FINDINGS: 1. Left main: The left main coronary artery is widely patent without any significant obstructive disease. 2. Left anterior descending: The mid LAD has 80% stenosis and this is the culprit for patient's presentation. The diagonal branches are widely patent without any significant obstructive angiographic disease. 3. Left circumflex: The left circumflex artery and the main marginal branches are widely patent without any significant obstructive angiographic disease. 4. Right coronary artery: The RCA is widely patent without any significant obstructive angiographic disease. The RPDA and RPLA are widely patent without any significant obstructive angiographic disease. The RCA is the dominant vessel. 5. Left ventricle: A. End-diastolic pressure 13 mmHg. B. LV gram deferred. C. No significant gradient across aortic valve on catheter pullback. 6. Opening AO pressure 166/114/136 mm Hg and closing AO pressure 131/79/10 4 mm Hg Description of Procedure: Informed consent signed and placed in the chart. Patient transferred to laboratory mechanic helper room. Prepped and draped in usual sterile fashion. 2% lidocaine in right groin area. Micropuncture needle used to access right common femoral artery with Seldinger technique under fluoroscopic guidance. J wire advanced, micropuncture cannula placed. Right iliofemoral angiogram performed, access confirmed and micropuncture cannula exchanged for 6-FR sheath. ? 5 [place] JL 5 diagnostic catheter engaged Left Main Coronary Artery. 5 [place] JR4 diagnostic catheter engaged Right Coronary Artery. Multiple orthogonal angiogram obtained and reviewed Five [place] JR4 diagnostic catheter crossed aortic valve to obtain LVEDP, LV angiogram deferred. Hemostasis was achieved by 6 [place]ais Angio-Seal. Procedure Description for PCI: Heparin was used for anticoagulation (ACT maintained above 250) Patient loaded with heparin at 70 units/kg. 6 [place] EBU 5 guide catheter was used to intubate the left main coronary artery. 0.014 runthrough coronary wire was passed in to the distal LAD. The lesion was pre-dilated with a 3.0 mm X 15 mm compliant balloon inflated to high ANDREW. A [employer] [place] [employer] IVUS catheter was advanced into the mid LAD and pullback performed to obtain lesion characteristics and vessel size. A the 0.5 mm X 26 mm Medtronic caden [place] ROMA was successfully deployed into mid LAD. IVUS catheter was readvanced into the LAD to evaluate stent. Stent appeared well apposed a slightly undersized. The stent was post-dilated with a 4.0 mm X 15 mm NC balloon inflated to high ANDREW. Intracoronary NTG was administered. Follow-up angiograms showed an excellent result. Coronary wire and guide-catheter were removed. Pre-procedure - CAMERON 3 flow Post-procedure - CAMERON 3 flow No angiographic complications identified. Assessment: NSTEMI status post successful IVUS guided PCI to 80% stenosis of mid LAD with 3.5 mm X 26 mm Medtronic caden ROMA post dilated with 4.0 mm X 15 mm noncompliant balloon to high pressures. Hypertension-poorly controlled with SBP in the 80s to 190s range in the laboratory mechanic helper. Post Operative Condition: Stable No significant blood loss Disposition: Floor/Home Plan: The patient will be monitored in the recovery area. Ticagrelor 180 mg p.o. loaded in the laboratory mechanic helper. Continue DAPT for 1 year with aspirin 81 mg p.o. daily and ticagrelor 90 mg p.o. b.i.d. followed by ASA indefinitely. Continue Atorvastatin 80 mg daily and metoprolol 25 mg p.o. b.i.d. TTE. Sublingual nitroglycerin 0.3 mg Q 5 minutes X 3 p.r.n. for chest pain. Bedrest for 2 hours. Normal saline 100 cc/hour for 250 mL. Continue aggressive medical therapy and risk factor modification. Blood pressure control with target less than 120/80 mm Hg. Continue metoprolol 25 mg p.o. b.i.d.. Increase amlodipine to 10 mg daily. Imaging Radiologist's impression: ITS Impressions Chest X-Ray 01/07/25 12:07 IMPRESSION: Probable strandy atelectasis on the frontal view. No definite infiltrate or air space disease seen on the lateral. Clinically correlate. Chest/Abdomen/Pelvis CTA 01/07/25 12:34 IMPRESSION: 1. No acute process is identified. No dissection or aneurysm Discharge Plan Discharge Attending physician on discharge: Lam Aguirre Consulting providers: Bautista Conley Discharging Clinician: Lam Aguirre Anticipated Discharge Date/Time: 01/09/25 12:00 Patient Disposition: Home Activity: as tolerated Diet: heart healthy Patient Instructions: Antibiotic Form Patient Language: Korean Stand Alone Forms: General Discharge Information Follow-up/Referrals: Bautista Conley MD [Physician, Cardiology] - 2 Weeks UNKNOWN,DOCTOR [Primary Care Provider] - 1 Week Discharge Medications: New ticagrelor 90 mg Tablet 90 mg PO Q12HR 30 Days Qty: 60 1RF aspirin 81 mg Tablet,Delayed Release (Dr/Ec) 81 mg PO QAM Qty: 30 0RF atorvastatin 40 mg Tablet 80 mg PO HS Qty: 60 0RF metoprolol succinate 50 mg Tablet Extended Release 24 Hr 50 mg PO QAM Qty: 30 0RF amlodipine 10 mg Tablet 10 mg PO QAM Qty: 30 0RF Continued celecoxib [Celebrex] 200 mg capsule 200 mg PO DAILY omeprazole 20 mg capsule,delayed release(DR/EC) 20 mg PO DAILY multivitamin [Daily Multi-Vitamin] Tablet 1 tablet PO DAILY ascorbic acid (vitamin C) 1,000 mg capsule 1 g PO DAILY cyanocobalamin (vitamin B-12) 500 mcg tablet 500 mcg PO DAILY Discontinued amlodipine 5 mg tablet 5 mg PO QAM Date of admission: 01/07/25 15:39 Primary Care Provider: UNKNOWN,DOCTOR Admitting Provider: Jose Carlos Hernandez Attending physician on admission: Jose Carlos Hernandez Condition: Improved
== END 2025-01-09 12:48 | disposition home or self-care (01) | DRG 322 ==
LOC: ANHED 12:16 → ANHIMU 15:55 → ANHICU 01-12 08:14
PROVIDERS: Emergency Medicine; Internal Medicine Cardiovascular Disease; Internal Medicine Interventional Cardiology; Nurse Practitioner; Nurse Practitioner Gerontology; Admitting Provider Internal Medicine; Emergency Provider Emergency Medicine; Visit Provider Internal Medicine
PROC: 4A023N7 Measurement of Cardiac Sampling and Pressure, Left Heart, Percutaneous Approach (ICD-10-PCS; CPT 93452; principal; 2025-01-08 19:50)
PROC: 027034Z Dilation of Coronary Artery, One Artery with Drug-eluting Intraluminal Device, Percutaneous Approach (ICD-10-PCS; 2025-01-08 19:50)
PROC: 027034Z Dilation of Coronary Artery, One Artery with Drug-eluting Intraluminal Device, Percutaneous Approach (ICD-10-PCS; 2025-01-08 19:50)
PROC: 027034Z Dilation of Coronary Artery, One Artery with Drug-eluting Intraluminal Device, Percutaneous Approach (ICD-10-PCS; 2025-01-08 19:50)
DX: I21.4 Non-ST elevation (NSTEMI) myocardial infarction (principal); I25.10 Atherosclerotic heart disease of native coronary artery without angina pectoris; I45.10 Unspecified right bundle-branch block; I10 Essential (primary) hypertension; F10.90 Alcohol use, unspecified, uncomplicated; K21.9 Gastro-esophageal reflux disease without esophagitis; I34.1 Nonrheumatic mitral (valve) prolapse; Z82.49 Family history of ischemic heart disease and other diseases of the circulatory system
CPT/HCPCS: 36415; 71046; 71275; 74174; 80048; 80053; 80061; 83690; 83735; 84484; 85025; 85610; 85730; 92978; 93005; 93458; 96374; 96375; 99285; A9270; C1725; C1753; C1760; C1769; C1874; C1887; C1894; C8929; C9600; G0269; J0360; J1171; J1644; J2003; J2250; J2270; J2470; J3010; J7040; Q9957; Q9967